=== PATIENT | female | born 1930 | race Asian ===

== ENCOUNTER 2017-04-21 06:45 | Inpatient (IN) | payer MEDICAID, MEDICARE ==
[2017-04-21] VITALS (8 sets, daily range): BP systolic 113–147; BP diastolic 29–89
[~2017-04-21] VITALS: Ht 162.6 cm; Wt 63.5 kg
[~2017-04-21 06:45] MED LIST: ATORVASTATIN CA20 MG ORAL; DEPAKOTE ER500 MG ORAL; DICYCLOMINE HCL10 MG ORAL; INDERAL LA60 MG ORAL; INDERAL10 MG ORAL; JANUVIA100 MG ORAL; LORAZEPAM2 MG ORAL; MELOXICAM7.5 MG ORAL; METFORMIN HCL1000 M1 ORAL; OMEPRAZOLE20 M3 ORAL; PROPRANOLOL HCL MC; TRAZODONE HCL100 MG ORAL; ZYPREXA10 MG ORAL
[2017-04-21] MEDS ORDERED: TRIHEXYPHENIDYL2 MG ORAL (06:50)
[2017-04-21] MEDS ORDERED: IBUPROFEN600 MG ORAL (06:50)
[2017-04-21] MEDS ORDERED: Bacitracin Oint UD TOPIC ONE (07:00)
[2017-04-21] MEDS ORDERED: Tetanus/Diptheria/Pertussis Vaccine 0.5ml Syr IM ONE (07:00)
[2017-04-21] MEDS ORDERED: Acetaminophen 650 MG SUPP RECTAL ONE (07:00)
[2017-04-21] MEDS ORDERED: NS 1000ml 1,900 ML IVLG ONE (07:00)
--- NOTE | 2017-04-21 07:16 | Emergency Room Report ---
History of Present Illness General Chief Complaint: Multiple Trauma/Fall Source: EMS Present Illness HPI The patient is brought in after a fall. She apparently hit her head and also scraped her left arm. The details of the fall are not apparent to us at this time. She's brought in by EMS basic life support. The patient is noted to have a fever. She's not communicating. She does follow some commands. No seizure was noted. Glucose in field normal. Patient does not communicate at this time. Allergies: Coded Allergies: No Known Allergies (Unverified , 12/14/12) Patient History Limited by: medical condition Past Medical History: see triage record Social History: Reports: smoking Social History Narrative assisted-living Now: No Reviewed Nursing Documentation: PMH: Agreed, PSxH: Agreed Nursing Documentation-PMH Hx Diabetes: Yes Hx Cancer: Yes - Cervix Hx Gastrointestinal Problems: Yes - GERD History Of Psychiatric Problem: Yes - Schizophrenia Review of Systems All Other Systems: limited Physical Exam Vital Signs Date Time Temp Pulse Resp B/P (MAP) Pulse Ox O2 Delivery O2 Flow Rate FiO2 04/21/17 06:37 100.8 99 14 125/63 97 Room Air Sp02 EP Interpretation: reviewed, normal General Appearance: no apparent distress, alert, lethargic, other - Hot skin Head: other - Small laceration occiput Eyes: bilateral eye normal inspection, bilateral eye PERRL ENT: dry mucus membranes - poor dentition Neck: full range of motion, supple, no bony tend Respiratory: normal inspection, chest non-tender, lungs clear, normal breath sounds Cardiovascular #1: tachycardia Cardiovascular #2: 2+ radial (R) Gastrointestinal: non tender, soft, no mass, abnormal bowel sounds - decreasede Musculoskeletal: back normal, digits/nails normal, normal range of motion Neurologic: motor strength/tone normal, DTRs symmetric, sensory intact, other - Somewhat lethargic, oriented - to name Psychiatric: depressed affect Skin: warm/dry, abrasions - Left elbow and superficial lacerations scalp Medical Decision Making Diagnostic Impression: Primary Impression: Sepsis Qualified Codes: A41.9 - Sepsis, unspecified organism Additional Impressions: UTI (urinary tract infection) Qualified Codes: N30.00 - Acute cystitis without hematuria Fall Qualified Codes: W19.XXXA - Unspecified fall, initial encounter Head injury Qualified Codes: S09.90XA - Unspecified injury of head, initial encounter Schizophrenia Qualified Codes: F20.9 - Schizophrenia, unspecified ER Course Patient presents with 2 problems. One is a fall and laceration to the occiput. Differential includes subdural hematoma, contusion. Unable to determine the circumstances of falling she needs to be considered to have had syncope. This requires evaluation with CT of the head, EKG, chest x-ray and labs including troponin. A secondary problem is that she has a fever. Her respiratory status is stable it was suggested she might have a urinary tract infection as the cause. She'll be treated for possible sepsis blood cultures will be done and a straight cath urine will be obtained. She'll be given rehydration as she is dehydrated at this time. The [place] the source is antibiotics will be started. Due to the nature of these 2 problems the patient needs to be admitted to the hospital. EKG ST, CXR no infiltrates, CT no bleed, labs with leukocytosis, renal insufficiency, initial lactate elevated. Antibiotics begun. Patient improved and smoking in room 2. Communicates needs well, but demonstrates poor insight. Admit tele Dr. Dalton. Laboratory Tests Test 04/21/17 07:00 04/21/17 07:30 04/21/17 08:58 04/21/17 16:14 White Blood Count 20.5 K/UL (4.8-10.8) H Red Blood Count 4.08 M/UL (4.20-5.40) L Hemoglobin 13.4 G/DL (12.0-16.0) Hematocrit 39.2 % (37.0-47.0) Mean Corpuscular Volume 96 FL (80-99) Mean Corpuscular Hemoglobin 32.8 PG (27.0-31.0) H Mean Corpuscular Hemoglobin Concent 34.1 G/DL (32.0-36.0) Red Cell Distribution Width 10.9 % (11.6-14.8) L Platelet Count 223 K/UL (150-450) Mean Platelet Volume 5.3 FL (6.5-10.1) L Neutrophils (%) (Auto) % (45.0-75.0) Lymphocytes (%) (Auto) % (20.0-45.0) Monocytes (%) (Auto) % (1.0-10.0) Eosinophils (%) (Auto) % (0.0-3.0) Basophils (%) (Auto) % (0.0-2.0) Differential Total Cells Counted 100 Neutrophils % (Manual) 87 % (45-75) H Lymphocytes % (Manual) 5 % (20-45) L Monocytes % (Manual) 8 % (1-10) Eosinophils % (Manual) 0 % (0-3) Basophils % (Manual) 0 % (0-2) Band Neutrophils 0 % (0-8) Platelet Estimate Adequate Platelet Morphology Normal Prothrombin Time 9.2 SEC (9.30-11.50) L Prothrombin Time INR 0.9 (0.9-1.1) PTT 26 SEC (23-33) Sodium Level 137 mEQ/L (135-145) Potassium Level 3.9 mEQ/L (3.4-4.9) Chloride Level 99 mEQ/L (98-107) Carbon Dioxide Level 25 mEQ/L (20-30) Anion Gap 13 (5-15) Blood Urea Nitrogen 24 mg/dL (7-23) H Creatinine 1.3 mg/dL (0.5-0.9) H Estimate Glomerular Filtration Rate mL/min (>60) Glucose Level 171 mg/dL (74-106) H Lactic Acid Level 2.80 mmol/L (0.66-2.22) H 1.00 mmol/L (0.66-2.22) Calcium Level 9.7 mg/dL (8.6-10.2) Total Bilirubin 0.3 mg/dL (0.0-1.2) Aspartate Amino Transferase (AST) 12 U/L (5-40) Alanine Aminotransferase (ALT) 14 U/L (3-33) Alkaline Phosphatase 81 U/L (35-104) Total Creatine Kinase 64 U/L (26-140) Troponin I < 0.30 ng/mL (<=0.30) Total Protein 7.3 g/dL (6.6-8.7) Albumin 4.3 g/dL (3.5-5.2) Globulin 3.0 g/dL Albumin/Globulin Ratio 1.4 (1.0-2.7) Urine Color Pale yellow Pale yellow Urine Appearance Slightly cloudy Slightly cloudy Urine pH 6 (4.5-8.0) 7 (4.5-8.0) Urine Specific [place] 1.005 (1.005-1.035) 1.010 (1.005-1.035) Urine Protein Negative (NEGATIVE) Negative (NEGATIVE) Urine Glucose (UA) Negative (NEGATIVE) 1+ (NEGATIVE) H Urine Ketones Negative (NEGATIVE) Negative (NEGATIVE) Urine Occult Blood 1+ (NEGATIVE) H 2+ (NEGATIVE) H Urine Nitrite Positive (NEGATIVE) H Positive (NEGATIVE) H Urine Bilirubin Negative (NEGATIVE) Negative (NEGATIVE) Urine Urobilinogen Normal MG/DL (0.0-1.0) Normal MG/DL (0.0-1.0) Urine Leukocyte Esterase 2+ (NEGATIVE) H 2+ (NEGATIVE) H Urine RBC 2-4 /HPF (0 - 2) H 2-4 /HPF (0 - 2) H Urine WBC 15-20 /HPF (0 - 2) H 10-15 /HPF (0 - 2) H Urine Squamous Epithelial Cells Occasional /LPF Moderate /LPF (NONE/OCC) H Urine Bacteria Many /HPF (NONE) H Moderate /HPF (NONE) H EKG Diagnostic Results Rate: tachycardiac ST Segments: no acute changes Rhythm Strip Diag. Results EP Interpretation: yes Rhythm: no PVC's, no ectopy, other - Sinus tachycardia Last Vital Signs Date Time Temp Pulse Resp B/P (MAP) Pulse Ox O2 Delivery O2 Flow Rate FiO2 04/21/17 20:00 96 04/21/17 20:00 97.7 20 138/68 96 Room Air Status: improved Disposition: ADMITTED INPATIENT Condition: Serious Keith Oconnor M.D. Apr 21, 2017 07:16
[2017-04-21 07:36] LABS: MEAN CORPUSCULAR HEMOGLOBIN 32.8 PG (27.0-31.0); MEAN CORPUSCULAR HGB CONC 34.1 G/DL (32.0-36.0); MEAN CORPUSCULAR VOLUME 96 FL (80-99); MEAN PLATELET VOLUME 5.3 FL (6.5-10.1); PLATELET COUNT 223 K/UL (150-450); RED BLOOD COUNT 4.08 M/UL (4.20-5.40); RED CELL DISTRIBUTION WIDTH 10.9 % (11.6-14.8); WHITE BLOOD COUNT 20.5 K/UL (4.8-10.8)
[2017-04-21 07:43] LABS: REFLEX LACTIC ACID YES OR NO YES
[2017-04-21 07:47] LABS: ALANINE AMINOTRANSFERASE 14 U/L (3-33); ALBUMIN/GLOBULIN RATIO 1.4 (1.0-2.7); ANION GAP 13 (5-15); ASPARTATE AMINO TRANSFERASE 12 U/L (5-40); CALCIUM 9.7 mg/dL (8.6-10.2); CARBON DIOXIDE 25 mEQ/L (20-30); CHLORIDE 99 mEQ/L (98-107); CREATININE 1.3 mg/dL (0.5-0.9); HEMOLYSIS 3; POTASSIUM 3.9 mEQ/L (3.4-4.9); SODIUM 137 mEQ/L (135-145); TOTAL PROTEIN 7.3 g/dL (6.6-8.7); TROPONIN I < 0.30 ng/mL (<=0.30)
[2017-04-21 08:01] LABS: APPEARANCE,URINE SLIGHTLY CLOUDY; KETONES,URINE NEGATIVE (NEGATIVE); LEUKOCYTE ESTERASE ,URINE 2+ (NEGATIVE); NITRITE,URINE POSITIVE (NEGATIVE); PH,URINE 6 (4.5-8.0); PROTEIN,URINE NEGATIVE (NEGATIVE); UROBILINOGEN,URINE NORMAL MG/DL (0.0-1.0)
[2017-04-21 08:08] LABS: BACTERIA,URINE MANY /HPF; SQUAMOUS EPITHELIAL CELL,UR OCCASIONAL /LPF (NONE/OCC); WBC,URINE 15-20 /HPF (0 - 2)
[2017-04-21 08:32] LABS: INR 0.9 (0.9-1.1); PROTHROMBIN TIME 9.2 SEC (9.30-11.50)
--- NOTE | 2017-04-21 08:46 | Diagnostic Imaging Report ---
Indication: Shortness of breath Comparison: 12/14/2012 chest one view Findings: Single view of the chest shows a normal cardiomediastinal silhouette. Pulmonary vasculature is normal. Lung are clear. Soft tissues and osseous structures are within normal limits. Impression: No acute chest disease
--- NOTE | 2017-04-21 08:46 | Diagnostic Imaging Report ---
Indication: TRAUMA Comparison: None Technique: Contiguous helical CT images of the brain was performed with [address] dose: Total DLP: 1330 mGycm; CTDI volume: 70.4 mGy Findings: There is no acute intracranial hemorrhage or infarct. No mass, mass effect or midline shift identified. Ventricles and sulci are prominent secondary to global cortical atrophy. There are no extra-axial fluid collections seen. Periventricular chronic ischemic changes are noted. Bony calvarium is intact. Mastoid air cells and visualized paranasal sinuses are clear. Impression: 1. No acute intracranial abnormalities. 2. Global cortical atrophy with periventricular chronic ischemic changes. The CT scanner at [facility] is accredited by the [employer] and the scans are performed using protocols designed to limit radiation exposure to as low as reasonably achievable to attain images of sufficient resolution adequate for diagnostic evaluation.
[2017-04-21] MEDS ORDERED: Cefepime HCl 1 GM in D5W 55 ML IVPB ONE (09:00)
[2017-04-21] MEDS ORDERED: Cefepime 1gm vial ONE (09:06)
[2017-04-21 10:00] LABS: BAND NEUTROPHILS % (MANUAL) 0 % (0-8); BASOPHILS % (MANUAL) 0 % (0-2); EOSINOPHILS % (MANUAL) 0 % (0-3); LYMPHOCYTES % (MANUAL) 5 % (20-45); NEUTROPHILS % (MANUAL) 87 % (45-75); PLATELET ESTIMATE ADEQUATE; PLATELET MORPHOLOGY NORMAL; TOTAL CELLS COUNTED 100
[2017-04-21] MEDS ORDERED: Miralax 17gm pkt ORAL PRN (10:00)
[2017-04-21] MEDS ORDERED: Morphine Sulfate 2mg/ml Inj IVP PRN (10:00)
[2017-04-21] MEDS ORDERED: Albuterol/Ipratropium 3ml neb HHN PRN (10:00)
[2017-04-21] MEDS ORDERED: Vancomycin 1 GM in D5W 275 ML IVPB ONE (12:00)
--- NOTE | 2017-04-21 13:10 | Infectious Diseases Prog Note ---
Assessment/Plan Problems: (1) UTI (urinary tract infection) Assessment & Plan: continue cefepime pending urine culture (2) Fever Assessment & Plan: due to sepsis and UTI, continue antibiotics and tylenol (3) Sepsis Assessment & Plan: suspect due to uti , continue vancomycin and cefepime pending blood culture results Subjective Allergies: Coded Allergies: No Known Allergies (Unverified , 12/14/12) Objective Vital Signs Last 24 Hour Vital Signs Date Time Temp Pulse Resp B/P (MAP) Pulse Ox O2 Delivery O2 Flow Rate FiO2 04/21/17 12:26 98.0 90 20 138/89 99 Room Air 04/21/17 10:11 98.2 92 11 116/55 97 Room Air 04/21/17 08:41 98.6 91 15 127/59 96 Room Air 04/21/17 08:12 98.6 04/21/17 07:20 100.5 98 13 125/63 98 Room Air 04/21/17 06:37 100.8 99 14 125/63 97 Room Air Height (Feet): 5 Height (Inches): 4.00 Weight (Pounds): 140 Laboratory Tests Test 04/21/17 07:00 04/21/17 07:30 04/21/17 08:58 White Blood Count 20.5 K/UL (4.8-10.8) H Red Blood Count 4.08 M/UL (4.20-5.40) L Hemoglobin 13.4 G/DL (12.0-16.0) Hematocrit 39.2 % (37.0-47.0) Mean Corpuscular Volume 96 FL (80-99) Mean Corpuscular Hemoglobin 32.8 PG (27.0-31.0) H Mean Corpuscular Hemoglobin Concent 34.1 G/DL (32.0-36.0) Red Cell Distribution Width 10.9 % (11.6-14.8) L Platelet Count 223 K/UL (150-450) Mean Platelet Volume 5.3 FL (6.5-10.1) L Neutrophils (%) (Auto) % (45.0-75.0) Lymphocytes (%) (Auto) % (20.0-45.0) Monocytes (%) (Auto) % (1.0-10.0) Eosinophils (%) (Auto) % (0.0-3.0) Basophils (%) (Auto) % (0.0-2.0) Differential Total Cells Counted 100 Neutrophils % (Manual) 87 % (45-75) H Lymphocytes % (Manual) 5 % (20-45) L Monocytes % (Manual) 8 % (1-10) Eosinophils % (Manual) 0 % (0-3) Basophils % (Manual) 0 % (0-2) Band Neutrophils 0 % (0-8) Platelet Estimate Adequate Platelet Morphology Normal Prothrombin Time 9.2 SEC (9.30-11.50) L Prothromb Time International Ratio 0.9 (0.9-1.1) Activated Partial Thromboplast Time 26 SEC (23-33) Sodium Level 137 mEQ/L (135-145) Potassium Level 3.9 mEQ/L (3.4-4.9) Chloride Level 99 mEQ/L (98-107) Carbon Dioxide Level 25 mEQ/L (20-30) Anion Gap 13 (5-15) Blood Urea Nitrogen 24 mg/dL (7-23) H Creatinine 1.3 mg/dL (0.5-0.9) H Estimat Glomerular Filtration Rate mL/min (>60) Glucose Level 171 mg/dL (74-106) H Lactic Acid Level 2.80 mmol/L (0.66-2.22) H 1.00 mmol/L (0.66-2.22) Calcium Level 9.7 mg/dL (8.6-10.2) Total Bilirubin 0.3 mg/dL (0.0-1.2) Aspartate Amino Transf (AST/SGOT) 12 U/L (5-40) Alanine Aminotransferase (ALT/SGPT) 14 U/L (3-33) Alkaline Phosphatase 81 U/L (35-104) Total Creatine Kinase 64 U/L (26-140) Troponin I < 0.30 ng/mL (<=0.30) Total Protein 7.3 g/dL (6.6-8.7) Albumin 4.3 g/dL (3.5-5.2) Globulin 3.0 g/dL Albumin/Globulin Ratio 1.4 (1.0-2.7) Urine Color Pale yellow Urine Appearance Slightly cloudy Urine pH 6 (4.5-8.0) Urine Specific [place] 1.005 (1.005-1.035) Urine Protein Negative (NEGATIVE) Urine Glucose (UA) Negative (NEGATIVE) Urine Ketones Negative (NEGATIVE) Urine Occult Blood 1+ (NEGATIVE) H Urine Nitrite Positive (NEGATIVE) H Urine Bilirubin Negative (NEGATIVE) Urine Urobilinogen Normal MG/DL (0.0-1.0) Urine Leukocyte Esterase 2+ (NEGATIVE) H Urine RBC 2-4 /HPF (0 - 2) H Urine WBC 15-20 /HPF (0 - 2) H Urine Squamous Epithelial Cells Occasional /LPF Urine Bacteria Many /HPF (NONE) H Current Medications Medications (Trade) Dose Ordered Sig/Milvia Route PRN Reason Start Time Stop Time Status Last Admin Dose Admin Acetaminophen (Tylenol) 650 mg Q4H PRN ORAL fever 04/21/17 10:00 05/21/17 09:59 Albuterol/ Ipratropium (DuoNeb 0.5-3(2.5)mg/3ml) 3 ml Q4H PRN HHN Shortness of Breath 04/21/17 10:00 04/26/17 09:59 Cefepime HCl 1 gm/ Dextrose 55 ml @ 110 mls/hr Q24H IVPB 04/22/17 09:00 04/29/17 08:59 Divalproex Sodium (Depakote) 500 mg THREE TIMES A DAY ORAL 04/21/17 13:00 05/21/17 12:59 Heparin Sodium (Porcine) (Heparin 5000 units/ml) 5,000 units EVERY 12 HOURS SUBQ 04/21/17 21:00 05/21/17 20:59 Morphine Sulfate (Morphine Sulfate) 2 mg Q4H PRN IVP Moderate Pain (Pain Scale 4-6) 04/21/17 10:00 04/28/17 09:59 Ondansetron HCl (Zofran) 4 mg Q6H PRN IVP Nausea & Vomiting 04/21/17 10:00 05/21/17 09:59 Phenazopyridine HCl (Pyridium) 100 mg DAILYPRN PRN ORAL dysuria 04/21/17 10:00 05/21/17 09:59 Polyethylene Glycol (Miralax) 17 gm DAILYPRN PRN ORAL Constipation 04/21/17 10:00 05/21/17 09:59 Sodium Chloride 1,000 ml @ 300 mls/hr Q3H20M IV 04/21/17 07:00 05/21/17 06:59 04/21/17 12:30 Temazepam (Restoril) 15 mg HSPRN PRN ORAL Insomnia 04/21/17 10:00 04/28/17 09:59 Trazodone HCl (Desyrel) 100 mg BEDTIME ORAL 04/21/17 21:00 05/21/17 20:59 Vancomycin HCl 1 gm/Dextrose 275 ml @ 183.3 mls/ hr ONCE ONCE IVPB 04/21/17 12:00 04/21/17 13:30 04/21/17 11:55 Vancomycin/Sodium Chloride 250 ml @ 166.667 mls/hr Q24H IVPB 04/22/17 12:00 04/27/17 11:59 Mary Islas M.D. Apr 21, 2017 13:10
[2017-04-21] MEDS: Depakote 500mg tab ORAL SCH ×2 (13:34→18:08)
[2017-04-21] MEDS: NovoLOG Insulin Flexpen SUBQ SCH ×2 (16:56→21:00)
[2017-04-21 18:43] LABS: APPEARANCE,URINE SLIGHTLY CLOUDY; KETONES,URINE NEGATIVE (NEGATIVE); LEUKOCYTE ESTERASE ,URINE 2+ (NEGATIVE); NITRITE,URINE POSITIVE (NEGATIVE); PH,URINE 7 (4.5-8.0); PROTEIN,URINE NEGATIVE (NEGATIVE); UROBILINOGEN,URINE NORMAL MG/DL (0.0-1.0)
[2017-04-21 18:55] LABS: BACTERIA,URINE MODERATE /HPF; SQUAMOUS EPITHELIAL CELL,UR MODERATE /LPF (NONE/OCC)
[2017-04-21] MEDS ORDERED: TraZODone 100mg tab ORAL SCH (21:00)
[2017-04-21] MEDS: Heparin 5000 units/ml inj SUBQ SCH (21:00)
[2017-04-21] MEDS ORDERED: Cefepime HCl 2 GM in D5W 110 ML IV SCH (21:00)
[2017-04-22 04:23] VITALS: BP 110/60
[2017-04-22] MEDS ORDERED: LORazepam 0.5mg tab ORAL PRN (05:00)
[2017-04-22] MEDS: NovoLOG Insulin Flexpen SUBQ SCH ×4 (06:30→21:48)
[2017-04-22 08:00] VITALS: BP 106/58
[2017-04-22 08:05] LABS: BASOPHILS % (AUTO) 0.2 % (0.0-2.0); EOSINOPHILS % (AUTO) 0.1 % (0.0-3.0); LYMPHOCYTES % (AUTO) 11.7 % (20.0-45.0); MEAN CORPUSCULAR HEMOGLOBIN 34.2 PG (27.0-31.0); MEAN CORPUSCULAR HGB CONC 35.6 G/DL (32.0-36.0); MEAN CORPUSCULAR VOLUME 96 FL (80-99); MEAN PLATELET VOLUME 5.9 FL (6.5-10.1); MONOCYTES % (AUTO) 6.3 % (1.0-10.0); NEUTROPHILS % (AUTO) 81.7 % (45.0-75.0); PLATELET COUNT 173 K/UL (150-450); RED BLOOD COUNT 3.65 M/UL (4.20-5.40); RED CELL DISTRIBUTION WIDTH 11.6 % (11.6-14.8); WHITE BLOOD COUNT 17.7 K/UL (4.8-10.8)
[2017-04-22 08:25] LABS: ALANINE AMINOTRANSFERASE 12 U/L (3-33); ALBUMIN/GLOBULIN RATIO 1.2 (1.0-2.7); ANION GAP 13 (5-15); ASPARTATE AMINO TRANSFERASE 11 U/L (5-40); CALCIUM 8.7 mg/dL (8.6-10.2); CARBON DIOXIDE 22 mEQ/L (20-30); CHLORIDE 103 mEQ/L (98-107); CREATININE 1.3 mg/dL (0.5-0.9); HEMOLYSIS 2; POTASSIUM 3.9 mEQ/L (3.4-4.9); SODIUM 138 mEQ/L (135-145); TOTAL PROTEIN 6.5 g/dL (6.6-8.7)
--- NOTE | 2017-04-22 08:32 | History and Physical Report ---
DATE OF ADMISSION: 04/21/2017 TIME: At 9 a.m. CONSULTANTS: 1. Spencer Leonardo M.D. 2. Dr. Wiley. 3. Valentin Jefferson M.D. 4. Lj Skinner M.D. Chief Complaint: Weakness, confusion, fall, urinary tract infection, sepsis, laceration on scalp. Brief History: This is an 87-year-old female from an assisted living presented with above-mentioned diagnoses. Wound was dressed. The patient was cleared by ER doctor. UTI was found. The patient being to telemetry for further care. Currently, confused in bed, no complaints otherwise. REVIEW OF SYSTEMS: Unavailable, the patient is very confused. Past Medial History: Includes schizophrenia, diabetes, hypercholesterolemia, hypertension. PAST SURGICAL HISTORY: Unknown. MEDICATIONS: Include cefepime, levofloxacin, IV fluids, bacitracin. ALLERGIES: Denies. Social History: Plosive smoke. No alcohol. No change of drug abuse. FAMILY HISTORY: Noncontributory. PHYSICAL EXAMINATION: GENERAL: Calm in ER gurney, oriented x1, in no acute distress. Vital Signs: Temperature is 98 degrees, pulse 91, respirations 15, and blood pressure 127/59. CARDIOVASCULAR: No murmurs. LUNGS: Distant and clear. ABDOMEN: Bowel sounds are positive. Nontender and nondistended. EXTREMITIES: No cyanosis, clubbing, or edema. NEUROLOGICAL: The patient moves all extremities, but slightly weak. Laboratory Data: Show white count 20, otherwise CBC is normal. BMP shows BUN and creatine 24 and 1.3, otherwise normal. INR is 0.9. Urinalysis, positive nitrites. ASSESSMENT: 1. Fall. 2. Urinary tract infection. 3. Sepsis. 4. 01:40 5. Laceration to scalp. 6. Schizophrenia. 7. Diabetes. 8. Hypertension. PLAN: 1. Continue premedications. 2. OT, PT, and dietary followup. 3. Wound care. 4. CBC and BMP in the morning. 5. Blood sugar control. 6. Blood pressure control. 7. Resume home medications. 8. Dr Leonardo, Dr. Wiley, Dr. Jefferson, Dr. Skinner, and Dr. Cornejo to consult. 9. We will continue to follow this patient. Ap Dalton D.O. DR: Luis JOB#: [id number] CC:
[2017-04-22] MEDS ORDERED: Cefepime 1gm/D5W 55ml IVPB SCH ×2 (09:00)
--- NOTE | 2017-04-22 09:57 | Infectious Diseases Prog Note ---
Assessment/Plan Assessment/Plan Assesment: UTI -u/a WBC 15-20, nit +, leuk est +2; ucx >100k GNB (Id and sensi pending) Low grade fever/leukocytosis, improving -CXR no acute disease s/p Fall with scalp laceration -CT head with no acute abnormalities DM2 Schizophrenia Plan: -Continue IV Cefepime #2 pending Ucx -D/C IV Vancomycin -s/p 1 d IV Vancomycin 04/22 -monitor CBC/BMP, temperatures -Aspiration precautions Discussed with RN. Subjective Allergies: Coded Allergies: No Known Allergies (Unverified , 12/14/12) Subjective afebrile Leukocytosis improving Objective Vital Signs Last 24 Hour Vital Signs Date Time Temp Pulse Resp B/P (MAP) Pulse Ox O2 Delivery O2 Flow Rate FiO2 04/22/17 08:00 98.4 86 19 106/58 96 Room Air 04/22/17 04:23 98.1 69 20 110/60 95 Room Air 04/22/17 04:00 68 04/22/17 00:00 66 04/21/17 23:42 97.7 67 20 113/50 96 Room Air 04/21/17 20:00 96 04/21/17 20:00 97.7 78 20 138/68 96 Room Air 04/21/17 16:00 78 04/21/17 15:15 98.2 77 20 147/61 99 Room Air 04/21/17 14:45 95 13 121/60 97 Room Air 04/21/17 14:37 98.2 88 29 141/29 100 Room Air 04/21/17 12:26 98.0 90 20 138/89 99 Room Air 04/21/17 10:11 98.2 92 11 116/55 97 Room Air Height (Feet): 5 Height (Inches): 4.00 Weight (Pounds): 140 Objective GENERAL: in no distress CARDIOVASCULAR: No murmurs. LUNGS: CTA x 2 ABDOMEN: Bowel sounds are positive. Nontender and nondistended. EXTREMITIES: No cyanosis, clubbing, or edema. NEUROLOGICAL: The patient moves all extremities, but slightly weak. Microbiology Date/Time Source Procedure Growth Status 04/21/17 16:14 Urine,Clean Catch Urine Culture - Preliminary NO GROWTH Resulted 04/21/17 07:30 Urine,Clean Catch Urine Culture - Preliminary Gram Negative Bacillus 1 Resulted Laboratory Tests Test 04/21/17 16:14 04/22/17 07:20 Urine Color Pale yellow Urine Appearance Slightly cloudy Urine pH 7 (4.5-8.0) Urine Specific [place] 1.010 (1.005-1.035) Urine Protein Negative (NEGATIVE) Urine Glucose (UA) 1+ (NEGATIVE) H Urine Ketones Negative (NEGATIVE) Urine Occult Blood 2+ (NEGATIVE) H Urine Nitrite Positive (NEGATIVE) H Urine Bilirubin Negative (NEGATIVE) Urine Urobilinogen Normal MG/DL (0.0-1.0) Urine Leukocyte Esterase 2+ (NEGATIVE) H Urine RBC 2-4 /HPF (0 - 2) H Urine WBC 10-15 /HPF (0 - 2) H Urine Squamous Epithelial Cells Moderate /LPF (NONE/OCC) H Urine Bacteria Moderate /HPF (NONE) H White Blood Count 17.7 K/UL (4.8-10.8) H Red Blood Count 3.65 M/UL (4.20-5.40) L Hemoglobin 12.5 G/DL (12.0-16.0) Hematocrit 35.2 % (37.0-47.0) L Mean Corpuscular Volume 96 FL (80-99) Mean Corpuscular Hemoglobin 34.2 PG (27.0-31.0) H Mean Corpuscular Hemoglobin Concent 35.6 G/DL (32.0-36.0) Red Cell Distribution Width 11.6 % (11.6-14.8) Platelet Count 173 K/UL (150-450) Mean Platelet Volume 5.9 FL (6.5-10.1) L Neutrophils (%) (Auto) 81.7 % (45.0-75.0) H Lymphocytes (%) (Auto) 11.7 % (20.0-45.0) L Monocytes (%) (Auto) 6.3 % (1.0-10.0) Eosinophils (%) (Auto) 0.1 % (0.0-3.0) Basophils (%) (Auto) 0.2 % (0.0-2.0) Sodium Level 138 mEQ/L (135-145) Potassium Level 3.9 mEQ/L (3.4-4.9) Chloride Level 103 mEQ/L (98-107) Carbon Dioxide Level 22 mEQ/L (20-30) Anion Gap 13 (5-15) Blood Urea Nitrogen 16 mg/dL (7-23) Creatinine 1.3 mg/dL (0.5-0.9) H Estimat Glomerular Filtration Rate mL/min (>60) Glucose Level 166 mg/dL (74-106) H Calcium Level 8.7 mg/dL (8.6-10.2) Total Bilirubin 0.3 mg/dL (0.0-1.2) Aspartate Amino Transf (AST/SGOT) 11 U/L (5-40) Alanine Aminotransferase (ALT/SGPT) 12 U/L (3-33) Alkaline Phosphatase 62 U/L (35-104) Total Protein 6.5 g/dL (6.6-8.7) L Albumin 3.6 g/dL (3.5-5.2) Globulin 2.9 g/dL Albumin/Globulin Ratio 1.2 (1.0-2.7) Current Medications Medications (Trade) Dose Ordered Sig/Milvia Route PRN Reason Start Time Stop Time Status Last Admin Dose Admin Acetaminophen (Tylenol) 650 mg Q4H PRN ORAL fever 04/21/17 10:00 05/21/17 09:59 Albuterol/ Ipratropium (DuoNeb 0.5-3(2.5)mg/3ml) 3 ml Q4H PRN HHN Shortness of Breath 04/21/17 10:00 04/26/17 09:59 Cefepime HCl 1 gm/ Dextrose 55 ml @ 110 mls/hr Q24H IVPB 04/22/17 09:00 04/29/17 08:59 Dextrose (Dextrose 50%) STAT PRN IV Hypoglycemia 04/21/17 16:30 05/21/17 16:29 Divalproex Sodium (Depakote) 500 mg THREE TIMES A DAY ORAL 04/21/17 13:00 05/21/17 12:59 04/21/17 18:08 Heparin Sodium (Porcine) (Heparin 5000 units/ml) 5,000 units EVERY 12 HOURS SUBQ 04/21/17 21:00 05/21/17 20:59 04/21/17 21:00 Insulin Aspart (NovoLOG) BEFORE MEALS AND HS SUBQ 04/21/17 17:00 05/21/17 16:59 04/21/17 21:00 Lorazepam (Ativan) 0.5 mg Q6H PRN ORAL For Anxiety 04/22/17 05:00 04/29/17 04:59 Morphine Sulfate (Morphine Sulfate) 2 mg Q4H PRN IVP Moderate Pain (Pain Scale 4-6) 04/21/17 10:00 04/28/17 09:59 Olanzapine (ZyPREXA) 5 mg DAILY ORAL 04/22/17 09:00 05/22/17 08:59 Olanzapine (ZyPREXA) 5 mg QHS ORAL 04/22/17 21:00 05/22/17 20:59 Ondansetron HCl (Zofran) 4 mg Q6H PRN IVP Nausea & Vomiting 04/21/17 10:00 05/21/17 09:59 Phenazopyridine HCl (Pyridium) 100 mg DAILYPRN PRN ORAL dysuria 04/21/17 10:00 05/21/17 09:59 Polyethylene Glycol (Miralax) 17 gm DAILYPRN PRN ORAL Constipation 04/21/17 10:00 05/21/17 09:59 Temazepam (Restoril) 15 mg HSPRN PRN ORAL Insomnia 04/21/17 10:00 04/28/17 09:59 04/21/17 21:55 Trazodone HCl (Desyrel) 100 mg BEDTIME ORAL 04/21/17 21:00 05/21/17 20:59 04/21/17 20:59 Vancomycin HCl (Vanco rx to dose) 1 ea DAILY PRN MISC PER RX PROTOCOL 04/21/17 16:45 05/21/17 16:44 Vancomycin/Sodium Chloride 250 ml @ 166.667 mls/hr Q24H IVPB 04/22/17 12:00 04/27/17 11:59 Nancy Longoria M.D. Apr 22, 2017 09:57
[2017-04-22] MEDS: Depakote 500mg tab ORAL SCH ×3 (10:03→16:48)
[2017-04-22] MEDS: Heparin 5000 units/ml inj SUBQ SCH ×2 (10:05→21:41)
[2017-04-22] MEDS ORDERED: Flu Vaccine Quadrivalent 0.5ml IM ONE (11:45)
[2017-04-22 12:00] VITALS: BP 107/53
[2017-04-22] MEDS ORDERED: Vancomycin 750mg/NS 250ml 250 ML IVPB SCH (12:00)
--- NOTE | 2017-04-22 12:32 | Consultation ---
History of Present Illness General Date patient seen: Apr 21, 2017 Chief Complaint: Multiple Trauma/Fall Present Illness HPI 87 year old female with hx of DM, HTN, psychosis, brought in by paramedics after an episode of fall. She apparently hit her head and also scraped her left arm. The patient was noted to have a fever. She's not communicating. She does follow some commands. She is admitted to telemetry for possible syncope and sepsis. Allergies: Coded Allergies: No Known Allergies (Unverified , 12/14/12) Medication History Scheduled Dicyclomine Hcl* (Dicyclomine Hcl*), 20 MG ORAL THREE TIMES A DAY, (Reported) Divalproex Sodium* (Depakote Er*), 500 MG ORAL THREE TIMES A DAY, (Reported) Lorazepam* (Lorazepam*), 2 MG ORAL BEDTIME, (Reported) Meloxicam* (Meloxicam*), 7.5 MG ORAL DAILY, (Reported) Metformin Hcl* (Metformin Hcl*), 1,000 MG ORAL TWICE A DAY, (Reported) Olanzapine* (Zyprexa*), 15 MG ORAL BEDTIME, (Reported) Omeprazole (Omeprazole), 20 MG ORAL DAILY, (Reported) Propranolol HCl (Propranolol HCl), 10 MG ORAL TWICE A DAY, (Reported) Propranolol Hcl* (Inderal La*), 60 MG ORAL DAILY, (Reported) Sitagliptin (Januvia), 100 MG ORAL DAILY, (Reported) Trazodone Hcl* (Desyrel*), 100 MG ORAL BEDTIME, (Reported) Trihexyphenidyl Hcl* (Artane*), 2 MG ORAL BEDTIME, (Reported) Scheduled PRN Ibuprofen* (Motrin*), 800 MG ORAL THREE TIMES A DAY PRN for For Pain, (Reported) Miscellaneous Medications Atorvastatin Calcium* (Atorvastatin Calcium*), 10 MG ORAL, (Reported) Patient History Healthcare decision maker Resuscitation status Full Code Advanced Directive on File Past Medical/Surgical History Past Medical/Surgical History: (1) Diabetes mellitus (2) Hypertension (3) Schizophrenia Review of Systems All Other Systems: negative except mentioned in HPI Physical Exam General Appearance: WD/WN Lines, tubes and drains: peripheral, PICC HEENT: normocephalic, atraumatic Neck: non-tender, normal alignment Respiratory/Chest: chest wall non-tender, lungs clear Cardiovascular/Chest: normal peripheral pulses, normal rate, regular rhythm Abdomen: normal bowel sounds, non tender Genitourinary/Rectal: normal genital exam, normal rectal exam Extremities: normal range of motion, non-tender Skin Exam: normal pigmentation Last 24 Hour Vital Signs Date Time Temp Pulse Resp B/P (MAP) Pulse Ox O2 Delivery O2 Flow Rate FiO2 04/22/17 12:00 98.1 66 19 107/53 98 Room Air 04/22/17 08:00 98.4 86 19 106/58 96 Room Air 04/22/17 04:23 98.1 69 20 110/60 95 Room Air 04/22/17 04:00 68 04/22/17 00:00 66 04/21/17 23:42 97.7 67 20 113/50 96 Room Air 04/21/17 20:00 96 04/21/17 20:00 97.7 78 20 138/68 96 Room Air 04/21/17 16:00 78 04/21/17 15:15 98.2 77 20 147/61 99 Room Air 04/21/17 14:45 95 13 121/60 97 Room Air 04/21/17 14:37 98.2 88 29 141/29 100 Room Air Intake and Output 04/22/17 04/23/17 19:00 07:00 Intake Total 240 ml Balance 240 ml Intake Oral 240 ml # Voids 2 Laboratory Tests Test 04/21/17 16:14 04/22/17 07:20 Urine Color Pale yellow Urine Appearance Slightly cloudy Urine pH 7 (4.5-8.0) Urine Specific [place] 1.010 (1.005-1.035) Urine Protein Negative (NEGATIVE) Urine Glucose (UA) 1+ (NEGATIVE) H Urine Ketones Negative (NEGATIVE) Urine Occult Blood 2+ (NEGATIVE) H Urine Nitrite Positive (NEGATIVE) H Urine Bilirubin Negative (NEGATIVE) Urine Urobilinogen Normal MG/DL (0.0-1.0) Urine Leukocyte Esterase 2+ (NEGATIVE) H Urine RBC 2-4 /HPF (0 - 2) H Urine WBC 10-15 /HPF (0 - 2) H Urine Squamous Epithelial Cells Moderate /LPF (NONE/OCC) H Urine Bacteria Moderate /HPF (NONE) H White Blood Count 17.7 K/UL (4.8-10.8) H Red Blood Count 3.65 M/UL (4.20-5.40) L Hemoglobin 12.5 G/DL (12.0-16.0) Hematocrit 35.2 % (37.0-47.0) L Mean Corpuscular Volume 96 FL (80-99) Mean Corpuscular Hemoglobin 34.2 PG (27.0-31.0) H Mean Corpuscular Hemoglobin Concent 35.6 G/DL (32.0-36.0) Red Cell Distribution Width 11.6 % (11.6-14.8) Platelet Count 173 K/UL (150-450) Mean Platelet Volume 5.9 FL (6.5-10.1) L Neutrophils (%) (Auto) 81.7 % (45.0-75.0) H Lymphocytes (%) (Auto) 11.7 % (20.0-45.0) L Monocytes (%) (Auto) 6.3 % (1.0-10.0) Eosinophils (%) (Auto) 0.1 % (0.0-3.0) Basophils (%) (Auto) 0.2 % (0.0-2.0) Sodium Level 138 mEQ/L (135-145) Potassium Level 3.9 mEQ/L (3.4-4.9) Chloride Level 103 mEQ/L (98-107) Carbon Dioxide Level 22 mEQ/L (20-30) Anion Gap 13 (5-15) Blood Urea Nitrogen 16 mg/dL (7-23) Creatinine 1.3 mg/dL (0.5-0.9) H Estimat Glomerular Filtration Rate mL/min (>60) Glucose Level 166 mg/dL (74-106) H Calcium Level 8.7 mg/dL (8.6-10.2) Total Bilirubin 0.3 mg/dL (0.0-1.2) Aspartate Amino Transf (AST/SGOT) 11 U/L (5-40) Alanine Aminotransferase (ALT/SGPT) 12 U/L (3-33) Alkaline Phosphatase 62 U/L (35-104) Total Protein 6.5 g/dL (6.6-8.7) L Albumin 3.6 g/dL (3.5-5.2) Globulin 2.9 g/dL Albumin/Globulin Ratio 1.2 (1.0-2.7) Microbiology Date/Time Source Procedure Growth Status 04/21/17 16:14 Urine,Clean Catch Urine Culture - Preliminary NO GROWTH Resulted Height (Feet): 5 Height (Inches): 4.00 Weight (Pounds): 140 Medications Current Medications Medications (Trade) Dose Ordered Sig/Milvia Route PRN Reason Start Time Stop Time Status Last Admin Dose Admin Acetaminophen (Tylenol) 650 mg Q4H PRN ORAL fever 04/21/17 10:00 05/21/17 09:59 Albuterol/ Ipratropium (DuoNeb 0.5-3(2.5)mg/3ml) 3 ml Q4H PRN HHN Shortness of Breath 04/21/17 10:00 04/26/17 09:59 Cefepime HCl 1 gm/ Dextrose 55 ml @ 110 mls/hr Q24H IVPB 04/22/17 09:00 04/29/17 08:59 04/22/17 11:38 Dextrose (Dextrose 50%) STAT PRN IV Hypoglycemia 04/21/17 16:30 05/21/17 16:29 Divalproex Sodium (Depakote) 500 mg THREE TIMES A DAY ORAL 04/21/17 13:00 05/21/17 12:59 04/22/17 10:03 Heparin Sodium (Porcine) (Heparin 5000 units/ml) 5,000 units EVERY 12 HOURS SUBQ 04/21/17 21:00 05/21/17 20:59 04/22/17 10:05 Insulin Aspart (NovoLOG) BEFORE MEALS AND HS SUBQ 04/21/17 17:00 05/21/17 16:59 04/22/17 11:41 Lorazepam (Ativan) 0.5 mg Q6H PRN ORAL For Anxiety 04/22/17 05:00 04/29/17 04:59 Morphine Sulfate (Morphine Sulfate) 2 mg Q4H PRN IVP Moderate Pain (Pain Scale 4-6) 04/21/17 10:00 04/28/17 09:59 Olanzapine (ZyPREXA) 5 mg DAILY ORAL 04/22/17 09:00 05/22/17 08:59 04/22/17 10:03 Olanzapine (ZyPREXA) 5 mg QHS ORAL 04/22/17 21:00 05/22/17 20:59 Ondansetron HCl (Zofran) 4 mg Q6H PRN IVP Nausea & Vomiting 04/21/17 10:00 05/21/17 09:59 Phenazopyridine HCl (Pyridium) 100 mg DAILYPRN PRN ORAL dysuria 04/21/17 10:00 05/21/17 09:59 Polyethylene Glycol (Miralax) 17 gm DAILYPRN PRN ORAL Constipation 04/21/17 10:00 05/21/17 09:59 Temazepam (Restoril) 15 mg HSPRN PRN ORAL Insomnia 04/21/17 10:00 04/28/17 09:59 04/21/17 21:55 Trazodone HCl (Desyrel) 100 mg BEDTIME ORAL 04/21/17 21:00 05/21/17 20:59 04/21/17 20:59 Assessment/Plan Problem List: (1) Sepsis ICD Codes: A41.9 - Sepsis, unspecified organism SNOMED: 56755437 Qualifiers: Qualified Codes: A41.9 - Sepsis, unspecified organism (2) UTI (urinary tract infection) ICD Codes: N39.0 - Urinary tract infection, site not specified SNOMED: 19952491 Qualifiers: Qualified Codes: N30.00 - Acute cystitis without hematuria (3) Diabetes mellitus ICD Codes: E11.9 - Type 2 diabetes mellitus without complications SNOMED: 90212513 (4) Hypertension ICD Codes: I10 - Essential (primary) hypertension SNOMED: 55262490 (5) Schizophrenia ICD Codes: F20.9 - Schizophrenia, unspecified SNOMED: 77066404 Qualifiers: Qualified Codes: F20.9 - Schizophrenia, unspecified (6) Head injury ICD Codes: S09.90XA - Unspecified injury of head, initial encounter SNOMED: 02787066 Qualifiers: Qualified Codes: S09.90XA - Unspecified injury of head, initial encounter (7) Fall ICD Codes: W19.XXXA - Unspecified fall, initial encounter SNOMED: 9140077, 653352898 Qualifiers: Qualified Codes: W19.XXXA - Unspecified fall, initial encounter Assessment/Plan telemetry monitoring IV abx [place] culture sliding scale diabetic diet dvt prophylaxis EFREM BETANCUR Apr 22, 2017 12:32
--- NOTE | 2017-04-22 12:41 | Pulmonology Progress Note ---
Assessment/Plan Problems: (1) Sepsis (2) UTI (urinary tract infection) (3) Diabetes mellitus (4) Hypertension (5) Schizophrenia (6) Head injury (7) Fall Assessment/Plan sinus rhythim improving renal studies IV abx [place] culture sliding scale diabetic diet dvt prophylaxis Subjective ROS Limited/Unobtainable: No Interval Events: feeling better Allergies: Coded Allergies: No Known Allergies (Unverified , 12/14/12) Objective Last 24 Hour Vital Signs Date Time Temp Pulse Resp B/P (MAP) Pulse Ox O2 Delivery O2 Flow Rate FiO2 04/22/17 12:00 98.1 66 19 107/53 98 Room Air 04/22/17 08:00 98.4 86 19 106/58 96 Room Air 04/22/17 04:23 98.1 69 20 110/60 95 Room Air 04/22/17 04:00 68 04/22/17 00:00 66 04/21/17 23:42 97.7 67 20 113/50 96 Room Air 04/21/17 20:00 96 04/21/17 20:00 97.7 78 20 138/68 96 Room Air 04/21/17 16:00 78 04/21/17 15:15 98.2 77 20 147/61 99 Room Air 04/21/17 14:45 95 13 121/60 97 Room Air 04/21/17 14:37 98.2 88 29 141/29 100 Room Air Intake and Output 04/22/17 04/23/17 19:00 07:00 Intake Total 240 ml Balance 240 ml Intake Oral 240 ml # Voids 2 General Appearance: WD/WN Respiratory/Chest: chest wall non-tender, lungs clear Breasts: no masses Cardiovascular: normal peripheral pulses Abdomen: normal bowel sounds, soft, non tender Genitourinary: normal external genitalia Extremities: no clubbing Skin: no rash Microbiology Date/Time Source Procedure Growth Status 04/21/17 07:00 Blood Blood Culture - Preliminary Resulted 04/21/17 16:14 Urine,Clean Catch Urine Culture - Preliminary NO GROWTH Resulted 04/21/17 07:30 Urine,Clean Catch Urine Culture - Preliminary Gram Negative Bacillus 1 Resulted Laboratory Tests 04/21/17 16:14: Urine Color Pale yellow, Urine Appearance Slightly cloudy, Urine pH 7, Urine Specific [place] 1.010, Urine Protein Negative, Urine Glucose (UA) 1+H, Urine Ketones Negative, Urine Occult Blood 2+H, Urine Nitrite PositiveH, Urine Bilirubin Negative, Urine Urobilinogen Normal, Urine Leukocyte Esterase 2+H, Urine RBC 2-4H, Urine WBC 10-15H, Urine Squamous Epithelial Cells ModerateH, Urine Bacteria ModerateH 04/22/17 07:20: White Blood Count 17.7H, Red Blood Count 3.65L, Hemoglobin 12.5, Hematocrit 35.2L, Mean Corpuscular Volume 96, Mean Corpuscular Hemoglobin 34.2H, Mean Corpuscular Hemoglobin Concent 35.6, Red Cell Distribution Width 11.6, Platelet Count 173, Mean Platelet Volume 5.9L, Neutrophils (%) (Auto) 81.7H, Lymphocytes (%) (Auto) 11.7L, Monocytes (%) (Auto) 6.3, Eosinophils (%) (Auto) 0.1, Basophils (%) (Auto) 0.2, Sodium Level 138, Potassium Level 3.9, Chloride Level 103, Carbon Dioxide Level 22, Anion Gap 13, Blood Urea Nitrogen 16, Creatinine 1.3H, Estimat Glomerular Filtration Rate , Glucose Level 166H, Calcium Level 8.7 , Total Bilirubin 0.3, Aspartate Amino Transf (AST/SGOT) 11, Alanine Aminotransferase (ALT/SGPT) 12, Alkaline Phosphatase 62, Total Protein 6.5L, Albumin 3.6, Globulin 2.9, Albumin/Globulin Ratio 1.2 Current Medications Medications (Trade) Dose Ordered Sig/Milvia Route PRN Reason Start Time Stop Time Status Last Admin Dose Admin Acetaminophen (Tylenol) 650 mg Q4H PRN ORAL fever 04/21/17 10:00 05/21/17 09:59 Albuterol/ Ipratropium (DuoNeb 0.5-3(2.5)mg/3ml) 3 ml Q4H PRN HHN Shortness of Breath 04/21/17 10:00 04/26/17 09:59 Cefepime HCl 1 gm/ Dextrose 55 ml @ 110 mls/hr Q24H IVPB 04/22/17 09:00 04/29/17 08:59 04/22/17 11:38 Dextrose (Dextrose 50%) STAT PRN IV Hypoglycemia 04/21/17 16:30 05/21/17 16:29 Divalproex Sodium (Depakote) 500 mg THREE TIMES A DAY ORAL 04/21/17 13:00 05/21/17 12:59 04/22/17 10:03 Heparin Sodium (Porcine) (Heparin 5000 units/ml) 5,000 units EVERY 12 HOURS SUBQ 04/21/17 21:00 05/21/17 20:59 04/22/17 10:05 Insulin Aspart (NovoLOG) BEFORE MEALS AND HS SUBQ 04/21/17 17:00 05/21/17 16:59 04/22/17 11:41 Lorazepam (Ativan) 0.5 mg Q6H PRN ORAL For Anxiety 04/22/17 05:00 04/29/17 04:59 Morphine Sulfate (Morphine Sulfate) 2 mg Q4H PRN IVP Moderate Pain (Pain Scale 4-6) 04/21/17 10:00 04/28/17 09:59 Olanzapine (ZyPREXA) 5 mg DAILY ORAL 04/22/17 09:00 05/22/17 08:59 04/22/17 10:03 Olanzapine (ZyPREXA) 5 mg QHS ORAL 04/22/17 21:00 05/22/17 20:59 Ondansetron HCl (Zofran) 4 mg Q6H PRN IVP Nausea & Vomiting 04/21/17 10:00 05/21/17 09:59 Phenazopyridine HCl (Pyridium) 100 mg DAILYPRN PRN ORAL dysuria 04/21/17 10:00 05/21/17 09:59 Polyethylene Glycol (Miralax) 17 gm DAILYPRN PRN ORAL Constipation 04/21/17 10:00 05/21/17 09:59 Temazepam (Restoril) 15 mg HSPRN PRN ORAL Insomnia 04/21/17 10:00 04/28/17 09:59 04/21/17 21:55 Trazodone HCl (Desyrel) 100 mg BEDTIME ORAL 04/21/17 21:00 05/21/17 20:59 04/21/17 20:59 EFREM BETANCUR Apr 22, 2017 12:41
[2017-04-22 13:15] LABS: URIC ACID 5.3 mg/dL (3.0-7.5)
--- NOTE | 2017-04-22 14:00 | General Progress Note ---
Assessment/Plan Problem List: (1) Malnutrition ICD Codes: E46 - Unspecified protein-calorie malnutrition SNOMED: 0361496 (2) Fever ICD Codes: R50.9 - Fever, unspecified SNOMED: 740458311 (3) Schizophrenia ICD Codes: F20.9 - Schizophrenia, unspecified SNOMED: 86421660 Qualifiers: Qualified Codes: F20.9 - Schizophrenia, unspecified (4) Sepsis ICD Codes: A41.9 - Sepsis, unspecified organism SNOMED: 27377646 Qualifiers: Qualified Codes: A41.9 - Sepsis, unspecified organism (5) Diabetes mellitus ICD Codes: E11.9 - Type 2 diabetes mellitus without complications SNOMED: 67405552 (6) UTI (urinary tract infection) ICD Codes: N39.0 - Urinary tract infection, site not specified SNOMED: 40636156 Qualifiers: Qualified Codes: N30.00 - Acute cystitis without hematuria (7) Hypertension ICD Codes: I10 - Essential (primary) hypertension SNOMED: 67485054 Status: stable, progressing, tolerating diet Assessment/Plan ot pt diet abx bp bs control cbc bmp in am ltach eval Subjective Constitutional: Reports: weakness Allergies: Coded Allergies: No Known Allergies (Unverified , 12/14/12) All Systems: reviewed and negative except above Subjective sleepy in bed calm Objective Last 24 Hour Vital Signs Date Time Temp Pulse Resp B/P (MAP) Pulse Ox O2 Delivery O2 Flow Rate FiO2 04/22/17 12:00 98.1 66 19 107/53 98 Room Air 04/22/17 08:00 98.4 86 19 106/58 96 Room Air 04/22/17 04:23 98.1 69 20 110/60 95 Room Air 04/22/17 04:00 68 04/22/17 00:00 66 04/21/17 23:42 97.7 67 20 113/50 96 Room Air 04/21/17 20:00 96 04/21/17 20:00 97.7 78 20 138/68 96 Room Air 04/21/17 16:00 78 04/21/17 15:15 98.2 77 20 147/61 99 Room Air 04/21/17 14:45 95 13 121/60 97 Room Air 04/21/17 14:37 98.2 88 29 141/29 100 Room Air Intake and Output 04/22/17 04/23/17 19:00 07:00 Intake Total 480 ml Balance 480 ml Intake Oral 480 ml # Voids 3 # Bowel Movements 1 Laboratory Tests 04/21/17 16:14: Urine Color Pale yellow, Urine Appearance Slightly cloudy, Urine pH 7, Urine Specific [place] 1.010, Urine Protein Negative, Urine Glucose (UA) 1+H, Urine Ketones Negative, Urine Occult Blood 2+H, Urine Nitrite PositiveH, Urine Bilirubin Negative, Urine Urobilinogen Normal, Urine Leukocyte Esterase 2+H, Urine RBC 2-4H, Urine WBC 10-15H, Urine Squamous Epithelial Cells ModerateH, Urine Bacteria ModerateH 04/22/17 07:20: White Blood Count 17.7H, Red Blood Count 3.65L, Hemoglobin 12.5, Hematocrit 35.2L, Mean Corpuscular Volume 96, Mean Corpuscular Hemoglobin 34.2H, Mean Corpuscular Hemoglobin Concent 35.6, Red Cell Distribution Width 11.6, Platelet Count 173, Mean Platelet Volume 5.9L, Neutrophils (%) (Auto) 81.7H, Lymphocytes (%) (Auto) 11.7L, Monocytes (%) (Auto) 6.3, Eosinophils (%) (Auto) 0.1, Basophils (%) (Auto) 0.2, Sodium Level 138, Potassium Level 3.9, Chloride Level 103, Carbon Dioxide Level 22, Anion Gap 13, Blood Urea Nitrogen 16, Creatinine 1.3H, Estimat Glomerular Filtration Rate , Glucose Level 166H, Uric Acid 5.3, Calcium Level 8.7, Total Bilirubin 0.3, Aspartate Amino Transf (AST/SGOT) 11, Alanine Aminotransferase (ALT/SGPT) 12, Alkaline Phosphatase 62, Total Creatine Kinase 63, Total Protein 6.5L, Albumin 3.6, Globulin 2.9, Albumin/Globulin Ratio 1.2 Height (Feet): 5 Height (Inches): 4.00 Weight (Pounds): 140 General Appearance: lethargic, confused EENT: normal ENT inspection Neck: normal alignment Cardiovascular: normal peripheral pulses, normal rate, regular rhythm Respiratory/Chest: chest wall non-tender, lungs clear, normal breath sounds Abdomen: normal bowel sounds, non tender, soft Extremities: normal inspection Edema: no edema noted Arm (L), no edema noted Arm (R), no edema noted Leg (L), no edema noted Leg (R), no edema noted Pedal (L), no edema noted Pedal (R), no edema noted Generalized Neurologic: responsive, motor weakness Skin: normal pigmentation, warm/dry MARY TORRES Apr 22, 2017 14:00
[2017-04-22 16:00] VITALS: BP 112/45
--- NOTE | 2017-04-22 17:07 | Infectious Diseases Prog Note ---
Assessment/Plan Problems: (1) UTI (urinary tract infection) Assessment & Plan: continue cefepime pending urine culture (2) Fever Assessment & Plan: due to sepsis and UTI, improving, continue antibiotics and tylenol (3) Sepsis Assessment & Plan: suspect due to uti , with gram negative rods, ok to stop vancomycin, continue cefepime pending identification and sensitivity Subjective ROS Limited/Unobtainable: Yes Allergies: Coded Allergies: No Known Allergies (Unverified , 12/14/12) Objective Vital Signs Last 24 Hour Vital Signs Date Time Temp Pulse Resp B/P (MAP) Pulse Ox O2 Delivery O2 Flow Rate FiO2 04/22/17 16:00 97.8 69 19 112/45 96 Room Air 04/22/17 12:00 98.1 66 19 107/53 98 Room Air 04/22/17 12:00 67 04/22/17 08:00 98.4 86 19 106/58 96 Room Air 04/22/17 08:00 69 04/22/17 04:23 98.1 69 20 110/60 95 Room Air 04/22/17 04:00 68 04/22/17 00:00 66 04/21/17 23:42 97.7 67 20 113/50 96 Room Air 04/21/17 20:00 96 04/21/17 20:00 97.7 78 20 138/68 96 Room Air Height (Feet): 5 Height (Inches): 4.00 Weight (Pounds): 140 General Appearance: WD/WN, no acute distress HEENT: normocephalic, atraumatic, anicteric, mucous membranes moist Respiratory/Chest: chest wall non-tender, lungs clear, normal breath sounds, no respiratory distress Cardiovascular: normal peripheral pulses, normal rate, regular rhythm Abdomen: normal bowel sounds, soft, non tender, no organomegaly, non distended Extremities: no cyanosis, no clubbing Skin: no rash, no lesions Microbiology Date/Time Source Procedure Growth Status 04/21/17 07:00 Blood Blood Culture - Preliminary Resulted 04/21/17 16:14 Urine,Clean Catch Urine Culture - Preliminary NO GROWTH Resulted 04/21/17 07:30 Urine,Clean Catch Urine Culture - Preliminary Gram Negative Bacillus 1 Resulted Laboratory Tests Test 04/22/17 07:20 White Blood Count 17.7 K/UL (4.8-10.8) H Red Blood Count 3.65 M/UL (4.20-5.40) L Hemoglobin 12.5 G/DL (12.0-16.0) Hematocrit 35.2 % (37.0-47.0) L Mean Corpuscular Volume 96 FL (80-99) Mean Corpuscular Hemoglobin 34.2 PG (27.0-31.0) H Mean Corpuscular Hemoglobin Concent 35.6 G/DL (32.0-36.0) Red Cell Distribution Width 11.6 % (11.6-14.8) Platelet Count 173 K/UL (150-450) Mean Platelet Volume 5.9 FL (6.5-10.1) L Neutrophils (%) (Auto) 81.7 % (45.0-75.0) H Lymphocytes (%) (Auto) 11.7 % (20.0-45.0) L Monocytes (%) (Auto) 6.3 % (1.0-10.0) Eosinophils (%) (Auto) 0.1 % (0.0-3.0) Basophils (%) (Auto) 0.2 % (0.0-2.0) Sodium Level 138 mEQ/L (135-145) Potassium Level 3.9 mEQ/L (3.4-4.9) Chloride Level 103 mEQ/L (98-107) Carbon Dioxide Level 22 mEQ/L (20-30) Anion Gap 13 (5-15) Blood Urea Nitrogen 16 mg/dL (7-23) Creatinine 1.3 mg/dL (0.5-0.9) H Estimat Glomerular Filtration Rate mL/min (>60) Glucose Level 166 mg/dL (74-106) H Uric Acid 5.3 mg/dL (3.0-7.5) Calcium Level 8.7 mg/dL (8.6-10.2) Total Bilirubin 0.3 mg/dL (0.0-1.2) Aspartate Amino Transf (AST/SGOT) 11 U/L (5-40) Alanine Aminotransferase (ALT/SGPT) 12 U/L (3-33) Alkaline Phosphatase 62 U/L (35-104) Total Creatine Kinase 63 U/L (26-140) Total Protein 6.5 g/dL (6.6-8.7) L Albumin 3.6 g/dL (3.5-5.2) Globulin 2.9 g/dL Albumin/Globulin Ratio 1.2 (1.0-2.7) Current Medications Medications (Trade) Dose Ordered Sig/Milvia Route PRN Reason Start Time Stop Time Status Last Admin Dose Admin Acetaminophen (Tylenol) 650 mg Q4H PRN ORAL fever 04/21/17 10:00 05/21/17 09:59 Albuterol/ Ipratropium (DuoNeb 0.5-3(2.5)mg/3ml) 3 ml Q4H PRN HHN Shortness of Breath 04/21/17 10:00 04/26/17 09:59 Cefepime HCl 1 gm/ Dextrose 55 ml @ 110 mls/hr Q24H IVPB 04/22/17 09:00 04/29/17 08:59 04/22/17 11:38 Dextrose (Dextrose 50%) STAT PRN IV Hypoglycemia 04/21/17 16:30 05/21/17 16:29 Divalproex Sodium (Depakote) 500 mg THREE TIMES A DAY ORAL 04/21/17 13:00 05/21/17 12:59 04/22/17 16:48 Heparin Sodium (Porcine) (Heparin 5000 units/ml) 5,000 units EVERY 12 HOURS SUBQ 04/21/17 21:00 05/21/17 20:59 04/22/17 10:05 Insulin Aspart (NovoLOG) BEFORE MEALS AND HS SUBQ 04/21/17 17:00 05/21/17 16:59 04/22/17 16:51 Lorazepam (Ativan) 0.5 mg Q6H PRN ORAL For Anxiety 04/22/17 05:00 04/29/17 04:59 Morphine Sulfate (Morphine Sulfate) 2 mg Q4H PRN IVP Moderate Pain (Pain Scale 4-6) 04/21/17 10:00 04/28/17 09:59 Olanzapine (ZyPREXA) 5 mg DAILY ORAL 04/22/17 09:00 05/22/17 08:59 04/22/17 10:03 Olanzapine (ZyPREXA) 5 mg QHS ORAL 04/22/17 21:00 05/22/17 20:59 Ondansetron HCl (Zofran) 4 mg Q6H PRN IVP Nausea & Vomiting 04/21/17 10:00 05/21/17 09:59 Phenazopyridine HCl (Pyridium) 100 mg DAILYPRN PRN ORAL dysuria 04/21/17 10:00 05/21/17 09:59 Polyethylene Glycol (Miralax) 17 gm DAILYPRN PRN ORAL Constipation 04/21/17 10:00 05/21/17 09:59 Temazepam (Restoril) 15 mg HSPRN PRN ORAL Insomnia 04/21/17 10:00 04/28/17 09:59 04/21/17 21:55 Trazodone HCl (Desyrel) 100 mg BEDTIME ORAL 04/21/17 21:00 05/21/17 20:59 04/21/17 20:59 Mary Islas M.D. Apr 22, 2017 17:07
--- NOTE | 2017-04-22 17:15 | Consultation ---
DATE OF CONSULTATION: NOTE: INCOMPLETE DICTATION. HISTORY OF PRESENT ILLNESS: This is an 87-year-old female. Valentin Jefferson M.D. DR: MARY JOB#: [id number] CC:
--- NOTE | 2017-04-22 19:17 | Cardiology Report ---
APPROVED REPORT EKG Measurement Heart [id number] Sinus tachycardia Otherwise normal ECG
[2017-04-22 20:00] VITALS: BP 136/69
[2017-04-22 20:53] LABS: APPEARANCE,URINE CLEAR; KETONES,URINE 1+ (NEGATIVE); LEUKOCYTE ESTERASE ,URINE 2+ (NEGATIVE); NITRITE,URINE NEGATIVE (NEGATIVE); PH,URINE 7 (4.5-8.0); PROTEIN,URINE NEGATIVE (NEGATIVE); UROBILINOGEN,URINE NORMAL MG/DL (0.0-1.0)
[2017-04-22] MEDS ORDERED: Morphine Sulfate 2mg/ml Inj IVP PRN (21:00)
[2017-04-22] MEDS ORDERED: Albuterol/Ipratropium 3ml neb HHN PRN (21:00)
[2017-04-22] MEDS ORDERED: Miralax 17gm pkt ORAL PRN (21:00)
[2017-04-22 21:32] LABS: AMORPHOUS SEDIMENT,UR FEW /LPF; BACTERIA,URINE FEW /HPF; SQUAMOUS EPITHELIAL CELL,UR FEW /LPF (NONE/OCC)
[2017-04-22] MEDS: TraZODone 100mg tab ORAL SCH (21:33)
[2017-04-22 23:19] VITALS: BP 118/57
--- NOTE | 2017-04-23 03:00 | Consultation ---
DATE OF CONSULTATION: INFECTIOUS DISEASES CONSULTATION REQUESTING PHYSICIAN: Ap Dalton D.O. Reason For Consultation: Sepsis, urinary tract infection. Recommendation for antibiotics therapy. History Of Present Illness: The patient is an 87-year-old female with past medical history of schizophrenia, diabetes, cervical cancer, and GERD, [facility] a [facility] and hit her head and scraped her left arm. The patient was sent to the [facility] emergency room for evaluation and management. After her fall, she was found to have sepsis with leukocytosis and urine tract infection. So, she was started on vancomycin and cefepime by the admitting physician and I was consulted for antibiotics treatment and further management. As of note, the patient is poor historian, cannot provide any history. Past Medical History: Significant for schizophrenia, GERD, diabetes, and cervical cancer. PAST SURGICAL HISTORY: Unknown. Medications: She is on cefepime and vancomycin. For the rest of her medications, please refer to MAR. ALLERGIES: She has no known drug allergy. Social History: She lives at the assisted living. No recent drugs, tobacco, or alcohol. PHYSICAL EXAMINATION: GENERAL: Elderly female, lying in bed, nonverbal, not in distress. Vital Signs: Temperature 98 degrees, pulse 90, respirations 20, blood pressure 138/89, and saturation 99% on room air. HEENT: Normocephalic and atraumatic. Pupils are reactive to light. Moist oral mucosa. No exudate. NECK: Supple. No lymphadenopathy. CARDIOVASCULAR: Tachycardic. S1 and S2 normal. LUNGS: Clear bilaterally. Diminished breathing sounds at the bases. ABDOMEN: Soft, nontender, and nondistended. No organomegaly. EXTREMITY: No edema or cyanosis. Skin: She had abrasion on the left elbow and laceration on her scalp. Laboratory And Diagnostic Data: Labs showed white count of 20.5 and platelets 223. BUN of 24 and creatinine of 1.3. Urinalysis showed positive nitrite, +2 leukocyte esterase, WBC 15 to 20, and many bacteria. Imaging, chest x-ray showed no acute infiltrate or effusion. Head CT scan showed no bleeding or acute pathology. ASSESSMENT AND RECOMMENDATIONS: 1. Urinary tract infection. We will send urine culture. Continue cefepime empirically, pending culture results. 2. Fever, suspect due to sepsis and urinary tract infection. Continue wide-spectrum antibiotics and Tylenol as needed. 3. Sepsis with leukocytosis, source is likely urinary tract infection. Continue vancomycin and cefepime, empiric treatment, pending culture results. Thank you for the consult. Mary Islas M.D. DR: FARHANA JOB#: [id number] CC:
[2017-04-23 03:58] VITALS: BP 132/69
[2017-04-23] MEDS: NovoLOG Insulin Flexpen SUBQ SCH ×4 (06:11→20:25)
[2017-04-23 07:14] LABS: BASOPHILS % (AUTO) 0.3 % (0.0-2.0); EOSINOPHILS % (AUTO) 0.7 % (0.0-3.0); LYMPHOCYTES % (AUTO) 16.6 % (20.0-45.0); MEAN CORPUSCULAR HEMOGLOBIN 33.8 PG (27.0-31.0); MEAN CORPUSCULAR HGB CONC 35.1 G/DL (32.0-36.0); MEAN CORPUSCULAR VOLUME 97 FL (80-99); MEAN PLATELET VOLUME 5.7 FL (6.5-10.1); MONOCYTES % (AUTO) 6.2 % (1.0-10.0); NEUTROPHILS % (AUTO) 76.2 % (45.0-75.0); PLATELET COUNT 180 K/UL (150-450); RED BLOOD COUNT 3.64 M/UL (4.20-5.40); RED CELL DISTRIBUTION WIDTH 11.5 % (11.6-14.8); WHITE BLOOD COUNT 11.1 K/UL (4.8-10.8)
[2017-04-23 07:52] LABS: ALANINE AMINOTRANSFERASE 15 U/L (3-33); ANION GAP 16 (5-15); ASPARTATE AMINO TRANSFERASE 13 U/L (5-40); CARBON DIOXIDE 21 mEQ/L (20-30); CHLORIDE 103 mEQ/L (98-107); CREATININE 1.2 mg/dL (0.5-0.9); HEMOLYSIS 0; MAGNESIUM 1.8 mg/dL (1.7-2.5); PHOSPHORUS 3.1 mg/dL (2.5-4.8); POTASSIUM 3.7 mEQ/L (3.4-4.9); SODIUM 140 mEQ/L (135-145); TOTAL PROTEIN 6.9 g/dL (6.6-8.7)
[2017-04-23 08:00] VITALS: BP 128/66
[2017-04-23] MEDS: Depakote 500mg tab ORAL SCH ×3 (09:18→17:20)
[2017-04-23] MEDS: Heparin 5000 units/ml inj SUBQ SCH ×2 (09:19→20:24)
[2017-04-23] MEDS: Cefepime HCl 1 GM in D5W 55 ML IVPB SCH (10:18)
[2017-04-23 12:00] VITALS: BP 135/72
--- NOTE | 2017-04-23 12:57 | General Progress Note ---
Assessment/Plan Problem List: (1) Malnutrition ICD Codes: E46 - Unspecified protein-calorie malnutrition SNOMED: 2198624 (2) Fever ICD Codes: R50.9 - Fever, unspecified SNOMED: 097184110 (3) Schizophrenia ICD Codes: F20.9 - Schizophrenia, unspecified SNOMED: 27648735 Qualifiers: Qualified Codes: F20.9 - Schizophrenia, unspecified (4) Sepsis ICD Codes: A41.9 - Sepsis, unspecified organism SNOMED: 01265281 Qualifiers: Qualified Codes: A41.9 - Sepsis, unspecified organism (5) Diabetes mellitus ICD Codes: E11.9 - Type 2 diabetes mellitus without complications SNOMED: 64254644 (6) UTI (urinary tract infection) ICD Codes: N39.0 - Urinary tract infection, site not specified SNOMED: 72128790 Qualifiers: Qualified Codes: N30.00 - Acute cystitis without hematuria (7) Hypertension ICD Codes: I10 - Essential (primary) hypertension SNOMED: 26695819 Status: stable, progressing, tolerating diet Assessment/Plan ot pt diet abx bp bs control cbc bmp in amdc plan w hhl Subjective Constitutional: Reports: weakness Allergies: Coded Allergies: No Known Allergies (Unverified , 12/14/12) All Systems: reviewed and negative except above Subjective sleepy in bed calm Objective Last 24 Hour Vital Signs Date Time Temp Pulse Resp B/P (MAP) Pulse Ox O2 Delivery O2 Flow Rate FiO2 04/23/17 12:00 97.3 60 20 135/72 99 Room Air 04/23/17 08:00 98.2 68 20 128/66 98 Room Air 04/23/17 03:58 97.7 76 19 132/69 98 Room Air 04/22/17 23:19 98.0 81 19 118/57 96 Room Air 04/22/17 20:00 97.7 59 18 136/69 96 Room Air 04/22/17 16:00 97.8 69 19 112/45 96 Room Air 04/22/17 16:00 71 Laboratory Tests 04/22/17 18:30: Urine Color Pale yellow, Urine Appearance Clear, Urine pH 7, Urine Specific [place] 1.005, Urine Protein Negative, Urine Glucose (UA) Negative, Urine Ketones 1+H, Urine Occult Blood 2+H, Urine Nitrite Negative, Urine Bilirubin Negative, Urine Urobilinogen Normal, Urine Leukocyte Esterase 2+H, Urine RBC 5- 10H, Urine WBC 2-4, Urine Squamous Epithelial Cells Few, Urine Amorphous Sediment FewH, Urine Bacteria Few, Urine Eosinophils None seen, Urine Random Sodium 99, Urine Potassium Timed 32 04/23/17 05:30: Sodium Level 140, Potassium Level 3.7, Chloride Level 103, Carbon Dioxide Level 21, Anion Gap 16H, Blood Urea Nitrogen 17, Creatinine 1.2H, Estimat Glomerular Filtration Rate , Glucose Level 104, Calcium Level 9.0, Phosphorus Level 3.1, Magnesium Level 1.8, Total Bilirubin 0.3, Aspartate Amino Transf (AST/SGOT) 13, Alanine Aminotransferase (ALT/SGPT) 15, Alkaline Phosphatase 72, Total Protein 6.9, Albumin 3.5, Globulin 3.4, Albumin/Globulin Ratio 1.0 04/23/17 05:35: White Blood Count 11.1H, Red Blood Count 3.64L, Hemoglobin 12.3, Hematocrit 35.1L, Mean Corpuscular Volume 97, Mean Corpuscular Hemoglobin 33.8H, Mean Corpuscular Hemoglobin Concent 35.1, Red Cell Distribution Width 11.5L, Platelet Count 180, Mean Platelet Volume 5.7L, Neutrophils (%) (Auto) 76.2H, Lymphocytes (%) (Auto) 16.6L, Monocytes (%) (Auto) 6.2, Eosinophils (%) (Auto) 0.7, Basophils (%) (Auto) 0.3 Height (Feet): 5 Height (Inches): 4.00 Weight (Pounds): 140 General Appearance: lethargic, confused EENT: normal ENT inspection Neck: normal alignment Cardiovascular: normal peripheral pulses, normal rate, regular rhythm Respiratory/Chest: chest wall non-tender, lungs clear, normal breath sounds Abdomen: normal bowel sounds, non tender, soft Extremities: normal inspection Edema: no edema noted Arm (L), no edema noted Arm (R), no edema noted Leg (L), no edema noted Leg (R), no edema noted Pedal (L), no edema noted Pedal (R), no edema noted Generalized Neurologic: motor weakness Skin: normal pigmentation, warm/dry MARY TORRES Apr 23, 2017 12:57
--- NOTE | 2017-04-23 15:10 | Diagnostic Imaging Report ---
Indication:Elevated Bun and Creatinine. Technique: Grayscale and duplex Doppler imaging of the kidneys performed. Comparison: None Findings: The size, contour, and echogenicity of both kidneys are within normal limits. There are small bilateral renal cysts present. Both kidneys are between 9 and 10 cm in length. There is no hydronephrosis. The IVC and urinary bladder are unremarkable. Impression: Essentially negative exam. Small bilateral renal cysts noted.
[2017-04-23 16:00] VITALS: BP 144/91
--- NOTE | 2017-04-23 17:22 | Infectious Diseases Prog Note ---
Assessment/Plan Problems: (1) UTI (urinary tract infection) Assessment & Plan: with E coli, continue cefepime pending urine culture (2) Fever Assessment & Plan: due to sepsis and UTI, improving, continue antibiotics and tylenol (3) Sepsis Assessment & Plan: suspect due to uti , with gram negative rods, continue cefepime pending identification and sensitivity , will repeat blood culture to confirm clearance Subjective ROS Limited/Unobtainable: Yes Allergies: Coded Allergies: No Known Allergies (Unverified , 12/14/12) Subjective she was comfortable, resting in bed, not in distress Objective Vital Signs Last 24 Hour Vital Signs Date Time Temp Pulse Resp B/P (MAP) Pulse Ox O2 Delivery O2 Flow Rate FiO2 04/23/17 16:00 97.7 61 20 144/91 98 Room Air 04/23/17 12:00 97.3 60 20 135/72 99 Room Air 04/23/17 08:00 98.2 68 20 128/66 98 Room Air 04/23/17 03:58 97.7 76 19 132/69 98 Room Air 04/22/17 23:19 98.0 81 19 118/57 96 Room Air 04/22/17 20:00 97.7 59 18 136/69 96 Room Air Height (Feet): 5 Height (Inches): 4.00 Weight (Pounds): 140 General Appearance: WD/WN, no acute distress HEENT: normocephalic, atraumatic, anicteric, mucous membranes moist Respiratory/Chest: chest wall non-tender, lungs clear, normal breath sounds, no respiratory distress, no accessory muscle use Cardiovascular: normal peripheral pulses, normal rate, regular rhythm, no gallop/murmur, no JVD Abdomen: normal bowel sounds, soft, non tender, no organomegaly, non distended , no mass Extremities: no cyanosis, no clubbing Skin: no rash, no lesions Microbiology Date/Time Source Procedure Growth Status 04/21/17 07:00 Blood Blood Culture - Preliminary Gram Negative Bacillus 1 Resulted 04/21/17 06:55 Blood Blood Culture - Preliminary NO GROWTH AFTER 24 HOURS Resulted 04/21/17 08:58 Nasal Nares MRSA Culture - Final NO METHICILLIN RESISTANT STAPH AUREUS... Complete 04/21/17 16:14 Urine,Clean Catch Urine Culture - Preliminary NO GROWTH AFTER 24 HOURS Resulted 04/21/17 07:30 Urine,Clean Catch Urine Culture - Final Escherichia Coli Complete 04/21/17 08:58 Rectum VRE Culture - Final NO VANCOMYCIN RESISTANT ENTEROCOCCUS ... Complete Laboratory Tests Test 04/22/17 18:30 04/23/17 05:30 04/23/17 05:35 Urine Color Pale yellow Urine Appearance Clear Urine pH 7 (4.5-8.0) Urine Specific [place] 1.005 (1.005-1.035) Urine Protein Negative (NEGATIVE) Urine Glucose (UA) Negative (NEGATIVE) Urine Ketones 1+ (NEGATIVE) H Urine Occult Blood 2+ (NEGATIVE) H Urine Nitrite Negative (NEGATIVE) Urine Bilirubin Negative (NEGATIVE) Urine Urobilinogen Normal MG/DL (0.0-1.0) Urine Leukocyte Esterase 2+ (NEGATIVE) H Urine RBC 5-10 /HPF (0 - 2) H Urine WBC 2-4 /HPF (0 - 2) Urine Squamous Epithelial Cells Few /LPF (NONE/OCC) Urine Amorphous Sediment Few /LPF (NONE) H Urine Bacteria Few /HPF (NONE) Urine Eosinophils None seen Urine Random Sodium 99 mmol/L Urine Potassium Timed 32 mmol/L Sodium Level 140 mEQ/L (135-145) Potassium Level 3.7 mEQ/L (3.4-4.9) Chloride Level 103 mEQ/L (98-107) Carbon Dioxide Level 21 mEQ/L (20-30) Anion Gap 16 (5-15) H Blood Urea Nitrogen 17 mg/dL (7-23) Creatinine 1.2 mg/dL (0.5-0.9) H Estimat Glomerular Filtration Rate mL/min (>60) Glucose Level 104 mg/dL (74-106) Calcium Level 9.0 mg/dL (8.6-10.2) Phosphorus Level 3.1 mg/dL (2.5-4.8) Magnesium Level 1.8 mg/dL (1.7-2.5) Total Bilirubin 0.3 mg/dL (0.0-1.2) Aspartate Amino Transf (AST/SGOT) 13 U/L (5-40) Alanine Aminotransferase (ALT/SGPT) 15 U/L (3-33) Alkaline Phosphatase 72 U/L (35-104) Total Protein 6.9 g/dL (6.6-8.7) Albumin 3.5 g/dL (3.5-5.2) Globulin 3.4 g/dL Albumin/Globulin Ratio 1.0 (1.0-2.7) White Blood Count 11.1 K/UL (4.8-10.8) H Red Blood Count 3.64 M/UL (4.20-5.40) L Hemoglobin 12.3 G/DL (12.0-16.0) Hematocrit 35.1 % (37.0-47.0) L Mean Corpuscular Volume 97 FL (80-99) Mean Corpuscular Hemoglobin 33.8 PG (27.0-31.0) H Mean Corpuscular Hemoglobin Concent 35.1 G/DL (32.0-36.0) Red Cell Distribution Width 11.5 % (11.6-14.8) L Platelet Count 180 K/UL (150-450) Mean Platelet Volume 5.7 FL (6.5-10.1) L Neutrophils (%) (Auto) 76.2 % (45.0-75.0) H Lymphocytes (%) (Auto) 16.6 % (20.0-45.0) L Monocytes (%) (Auto) 6.2 % (1.0-10.0) Eosinophils (%) (Auto) 0.7 % (0.0-3.0) Basophils (%) (Auto) 0.3 % (0.0-2.0) Current Medications Medications (Trade) Dose Ordered Sig/Milvia Route PRN Reason Start Time Stop Time Status Last Admin Dose Admin Acetaminophen (Tylenol) 650 mg Q4H PRN ORAL fever 04/22/17 21:00 05/21/17 20:59 Albuterol/ Ipratropium (DuoNeb 0.5-3(2.5)mg/3ml) 3 ml Q4H PRN HHN Shortness of Breath 04/22/17 21:00 04/26/17 20:59 Cefepime HCl 1 gm/ Dextrose 55 ml @ 110 mls/hr Q24H IVPB 04/23/17 09:00 04/29/17 08:59 04/23/17 10:18 Dextrose (Dextrose 50%) STAT PRN IV Hypoglycemia 04/23/17 16:30 05/21/17 16:29 Divalproex Sodium (Depakote) 500 mg THREE TIMES A DAY ORAL 04/23/17 09:00 05/21/17 12:59 04/23/17 17:20 Heparin Sodium (Porcine) (Heparin 5000 units/ml) 5,000 units EVERY 12 HOURS SUBQ 04/22/17 21:00 05/21/17 20:59 04/23/17 09:19 Insulin Aspart (NovoLOG) BEFORE MEALS AND HS SUBQ 04/22/17 21:00 05/21/17 16:59 04/22/17 21:48 Lorazepam (Ativan) 0.5 mg Q6H PRN ORAL For Anxiety 04/22/17 21:00 04/29/17 20:59 Morphine Sulfate (Morphine Sulfate) 2 mg Q4H PRN IVP Moderate Pain (Pain Scale 4-6) 04/22/17 21:00 04/28/17 20:59 Olanzapine (ZyPREXA) 5 mg DAILY ORAL 04/23/17 09:00 05/22/17 08:59 04/23/17 09:17 Olanzapine (ZyPREXA) 5 mg QHS ORAL 04/22/17 21:00 05/22/17 20:59 04/22/17 21:33 Ondansetron HCl (Zofran) 4 mg Q6H PRN IVP Nausea & Vomiting 04/22/17 21:00 05/21/17 20:59 Phenazopyridine HCl (Pyridium) 100 mg DAILYPRN PRN ORAL dysuria 04/22/17 21:00 05/22/17 20:59 Polyethylene Glycol (Miralax) 17 gm DAILYPRN PRN ORAL Constipation 04/22/17 21:00 05/22/17 20:59 Temazepam (Restoril) 15 mg HSPRN PRN ORAL Insomnia 04/22/17 21:00 04/29/17 20:59 04/22/17 21:42 Trazodone HCl (Desyrel) 100 mg BEDTIME ORAL 04/22/17 21:00 05/21/17 20:59 04/22/17 21:33 Mary Islas M.D. Apr 23, 2017 17:22
--- NOTE | 2017-04-23 18:18 | Pulmonology Progress Note ---
Assessment/Plan Problems: (1) Bacteremia (2) Sepsis (3) UTI (urinary tract infection) (4) Diabetes mellitus (5) Hypertension (6) Schizophrenia (7) Fall Assessment/Plan sinus rhythim improving renal studies IV abx, check cultures [place] culture sliding scale diabetic diet dvt prophylaxis Subjective ROS Limited/Unobtainable: No Constitutional: Reports: no symptoms HEENT: Repors: no symptoms Respiratory: Reports: no symptoms Allergies: Coded Allergies: No Known Allergies (Unverified , 12/14/12) Objective Last 24 Hour Vital Signs Date Time Temp Pulse Resp B/P (MAP) Pulse Ox O2 Delivery O2 Flow Rate FiO2 04/23/17 16:00 97.7 61 20 144/91 98 Room Air 04/23/17 12:00 97.3 60 20 135/72 99 Room Air 04/23/17 08:00 98.2 68 20 128/66 98 Room Air 04/23/17 03:58 97.7 76 19 132/69 98 Room Air 04/22/17 23:19 98.0 81 19 118/57 96 Room Air 04/22/17 20:00 97.7 59 18 136/69 96 Room Air Intake and Output 04/23/17 04/24/17 19:00 07:00 Intake Total 55 ml Balance 55 ml IV Total 55 ml General Appearance: WD/WN HEENT: normocephalic, anicteric Respiratory/Chest: chest wall non-tender, lungs clear Breasts: no masses Cardiovascular: normal peripheral pulses Abdomen: normal bowel sounds, soft, non tender Extremities: no cyanosis Skin: no lesions Neurologic/Psychiatric: occ med physician II-XII grossly normal Microbiology Date/Time Source Procedure Growth Status 04/21/17 07:00 Blood Blood Culture - Preliminary Gram Negative Bacillus 1 Resulted 04/21/17 06:55 Blood Blood Culture - Preliminary NO GROWTH AFTER 24 HOURS Resulted 04/21/17 08:58 Nasal Nares MRSA Culture - Final NO METHICILLIN RESISTANT STAPH AUREUS... Complete 04/21/17 16:14 Urine,Clean Catch Urine Culture - Preliminary NO GROWTH AFTER 24 HOURS Resulted 04/21/17 07:30 Urine,Clean Catch Urine Culture - Final Escherichia Coli Complete 04/21/17 08:58 Rectum VRE Culture - Final NO VANCOMYCIN RESISTANT ENTEROCOCCUS ... Complete Laboratory Tests 04/22/17 18:30: Urine Color Pale yellow, Urine Appearance Clear, Urine pH 7, Urine Specific [place] 1.005, Urine Protein Negative, Urine Glucose (UA) Negative, Urine Ketones 1+H, Urine Occult Blood 2+H, Urine Nitrite Negative, Urine Bilirubin Negative, Urine Urobilinogen Normal, Urine Leukocyte Esterase 2+H, Urine RBC 5- 10H, Urine WBC 2-4, Urine Squamous Epithelial Cells Few, Urine Amorphous Sediment FewH, Urine Bacteria Few, Urine Eosinophils None seen, Urine Random Sodium 99, Urine Potassium Timed 32 04/23/17 05:30: Sodium Level 140, Potassium Level 3.7, Chloride Level 103, Carbon Dioxide Level 21, Anion Gap 16H, Blood Urea Nitrogen 17, Creatinine 1.2H, Estimat Glomerular Filtration Rate , Glucose Level 104, Calcium Level 9.0, Phosphorus Level 3.1, Magnesium Level 1.8, Total Bilirubin 0.3, Aspartate Amino Transf (AST/SGOT) 13, Alanine Aminotransferase (ALT/SGPT) 15, Alkaline Phosphatase 72, Total Protein 6.9, Albumin 3.5, Globulin 3.4, Albumin/Globulin Ratio 1.0 04/23/17 05:35: White Blood Count 11.1H, Red Blood Count 3.64L, Hemoglobin 12.3, Hematocrit 35.1L, Mean Corpuscular Volume 97, Mean Corpuscular Hemoglobin 33.8H, Mean Corpuscular Hemoglobin Concent 35.1, Red Cell Distribution Width 11.5L, Platelet Count 180, Mean Platelet Volume 5.7L, Neutrophils (%) (Auto) 76.2H, Lymphocytes (%) (Auto) 16.6L, Monocytes (%) (Auto) 6.2, Eosinophils (%) (Auto) 0.7, Basophils (%) (Auto) 0.3 Current Medications Medications (Trade) Dose Ordered Sig/Milvia Route PRN Reason Start Time Stop Time Status Last Admin Dose Admin Acetaminophen (Tylenol) 650 mg Q4H PRN ORAL fever 04/22/17 21:00 05/21/17 20:59 Albuterol/ Ipratropium (DuoNeb 0.5-3(2.5)mg/3ml) 3 ml Q4H PRN HHN Shortness of Breath 04/22/17 21:00 04/26/17 20:59 Cefepime HCl 1 gm/ Dextrose 55 ml @ 110 mls/hr Q24H IVPB 04/23/17 09:00 04/29/17 08:59 04/23/17 10:18 Dextrose (Dextrose 50%) STAT PRN IV Hypoglycemia 04/23/17 16:30 05/21/17 16:29 Divalproex Sodium (Depakote) 500 mg THREE TIMES A DAY ORAL 04/23/17 09:00 05/21/17 12:59 04/23/17 17:20 Heparin Sodium (Porcine) (Heparin 5000 units/ml) 5,000 units EVERY 12 HOURS SUBQ 04/22/17 21:00 05/21/17 20:59 04/23/17 09:19 Insulin Aspart (NovoLOG) BEFORE MEALS AND HS SUBQ 04/22/17 21:00 05/21/17 16:59 04/22/17 21:48 Lorazepam (Ativan) 0.5 mg Q6H PRN ORAL For Anxiety 04/22/17 21:00 04/29/17 20:59 Morphine Sulfate (Morphine Sulfate) 2 mg Q4H PRN IVP Moderate Pain (Pain Scale 4-6) 04/22/17 21:00 04/28/17 20:59 Olanzapine (ZyPREXA) 5 mg DAILY ORAL 04/23/17 09:00 05/22/17 08:59 04/23/17 09:17 Olanzapine (ZyPREXA) 5 mg QHS ORAL 04/22/17 21:00 05/22/17 20:59 04/22/17 21:33 Ondansetron HCl (Zofran) 4 mg Q6H PRN IVP Nausea & Vomiting 04/22/17 21:00 05/21/17 20:59 Phenazopyridine HCl (Pyridium) 100 mg DAILYPRN PRN ORAL dysuria 04/22/17 21:00 05/22/17 20:59 Polyethylene Glycol (Miralax) 17 gm DAILYPRN PRN ORAL Constipation 04/22/17 21:00 05/22/17 20:59 Temazepam (Restoril) 15 mg HSPRN PRN ORAL Insomnia 04/22/17 21:00 04/29/17 20:59 04/22/17 21:42 Trazodone HCl (Desyrel) 100 mg BEDTIME ORAL 04/22/17 21:00 05/21/17 20:59 04/22/17 21:33 EFREM BETANCUR 3, 2017 18:18
[2017-04-23] MEDS: LORazepam 0.5mg tab ORAL PRN (19:25)
[2017-04-23 19:38] VITALS: BP 140/66
[2017-04-23] MEDS: TraZODone 100mg tab ORAL SCH (20:22)
[2017-04-23 23:51] VITALS: BP 150/64
[2017-04-24 04:00] VITALS: BP 141/69
[2017-04-24] MEDS: NovoLOG Insulin Flexpen SUBQ SCH ×4 (05:41→21:08)
[2017-04-24 07:29] VITALS: BP 136/70
[2017-04-24 08:30] LABS: BASOPHILS % (AUTO) 0.7 % (0.0-2.0); EOSINOPHILS % (AUTO) 1.4 % (0.0-3.0); LYMPHOCYTES % (AUTO) 43.2 % (20.0-45.0); MEAN CORPUSCULAR HGB CONC 35.4 G/DL (32.0-36.0); MEAN CORPUSCULAR VOLUME 96 FL (80-99); MEAN PLATELET VOLUME 5.6 FL (6.5-10.1); MONOCYTES % (AUTO) 8.6 % (1.0-10.0); NEUTROPHILS % (AUTO) 46.1 % (45.0-75.0); PLATELET COUNT 200 K/UL (150-450); RED BLOOD COUNT 3.89 M/UL (4.20-5.40); RED CELL DISTRIBUTION WIDTH 11.4 % (11.6-14.8); WHITE BLOOD COUNT 6.7 K/UL (4.8-10.8)
[2017-04-24 08:45] LABS: ANION GAP 13 (5-15); CALCIUM 9.5 mg/dL (8.6-10.2); CARBON DIOXIDE 24 mEQ/L (20-30); CHLORIDE 101 mEQ/L (98-107); CREATININE 1.1 mg/dL (0.5-0.9); HEMOLYSIS 0; POTASSIUM 3.7 mEQ/L (3.4-4.9); SODIUM 138 mEQ/L (135-145)
[2017-04-24] MEDS: Depakote 500mg tab ORAL SCH ×3 (09:24→17:25)
[2017-04-24] MEDS: Heparin 5000 units/ml inj SUBQ SCH ×2 (09:27→21:02)
[2017-04-24] MEDS: Cefepime HCl 1 GM in D5W 55 ML IVPB SCH (09:28)
[2017-04-24 11:46] VITALS: BP 148/78
[2017-04-24] MEDS: LORazepam 0.5mg tab ORAL PRN (12:59)
--- NOTE | 2017-04-24 13:40 | General Progress Note ---
Assessment/Plan Problem List: (1) Malnutrition ICD Codes: E46 - Unspecified protein-calorie malnutrition SNOMED: 2222482 (2) Fever ICD Codes: R50.9 - Fever, unspecified SNOMED: 082422187 (3) Schizophrenia ICD Codes: F20.9 - Schizophrenia, unspecified SNOMED: 98942181 Qualifiers: Qualified Codes: F20.9 - Schizophrenia, unspecified (4) Sepsis ICD Codes: A41.9 - Sepsis, unspecified organism SNOMED: 00020323 Qualifiers: Qualified Codes: A41.9 - Sepsis, unspecified organism (5) Diabetes mellitus ICD Codes: E11.9 - Type 2 diabetes mellitus without complications SNOMED: 77222747 (6) UTI (urinary tract infection) ICD Codes: N39.0 - Urinary tract infection, site not specified SNOMED: 34102467 Qualifiers: Qualified Codes: N30.00 - Acute cystitis without hematuria (7) Hypertension ICD Codes: I10 - Essential (primary) hypertension SNOMED: 70097003 Status: stable, progressing, tolerating diet Assessment/Plan ot pt diet abx bp bs control dc w hh Subjective Constitutional: Reports: weakness Allergies: Coded Allergies: No Known Allergies (Unverified , 12/14/12) All Systems: reviewed and negative except above Subjective sleepy in bed calm Objective Last 24 Hour Vital Signs Date Time Temp Pulse Resp B/P (MAP) Pulse Ox O2 Delivery O2 Flow Rate FiO2 04/24/17 11:46 97.7 68 20 148/78 100 Room Air 04/24/17 07:29 97.3 69 21 136/70 95 Room Air 04/24/17 04:00 97.3 74 18 141/69 97 Room Air 04/23/17 23:51 97.7 76 19 150/64 98 Room Air 04/23/17 19:38 97.8 62 19 140/66 96 Room Air 04/23/17 16:00 97.7 61 20 144/91 98 Room Air Intake and Output 04/24/17 04/25/17 19:00 07:00 Intake Total 480 ml Balance 480 ml Intake Oral 480 ml # Voids 4 # Bowel Movements 2 Laboratory Tests 04/24/17 07:00: White Blood Count 6.7, Red Blood Count 3.89L, Hemoglobin 13.2, Hematocrit 37.4, Mean Corpuscular Volume 96, Mean Corpuscular Hemoglobin 34.0H, Mean Corpuscular Hemoglobin Concent 35.4, Red Cell Distribution Width 11.4L, Platelet Count 200, Mean Platelet Volume 5.6L, Neutrophils (%) (Auto) 46.1, Lymphocytes (%) (Auto) 43.2, Monocytes (%) (Auto) 8.6, Eosinophils (%) (Auto) 1.4, Basophils (%) (Auto ) 0.7, Sodium Level 138, Potassium Level 3.7, Chloride Level 101, Carbon Dioxide Level 24, Anion Gap 13, Blood Urea Nitrogen 18, Creatinine 1.1H, Estimat Glomerular Filtration Rate , Glucose Level 90, Calcium Level 9.5 Height (Feet): 5 Height (Inches): 4.00 Weight (Pounds): 140 General Appearance: lethargic EENT: normal ENT inspection Neck: normal alignment Cardiovascular: normal peripheral pulses, normal rate, regular rhythm Respiratory/Chest: chest wall non-tender, lungs clear, normal breath sounds Abdomen: normal bowel sounds, non tender, soft Extremities: normal inspection Edema: no edema noted Arm (L), no edema noted Arm (R), no edema noted Leg (L), no edema noted Leg (R), no edema noted Pedal (L), no edema noted Pedal (R), no edema noted Generalized Neurologic: responsive, motor weakness Skin: normal pigmentation, warm/dry MARY TORRES Apr 24, 2017 13:40
[2017-04-24] MEDS ORDERED: DEPAKOTE250 MG PO (14:14)
[2017-04-24] MEDS ORDERED: TYLENOL650 MG/20. ORAL (14:14)
[2017-04-24] MEDS ORDERED: NOVOLOG100 UNIT/3 SUBQ (14:15)
[2017-04-24] MEDS ORDERED: DUONEB 0.5-3(2.53 ML HHN (14:15)
[2017-04-24] MEDS ORDERED: ZYPREXA10 MG ORAL (14:17)
[2017-04-24] MEDS ORDERED: ZYPREXA5 MG ORAL (14:17)
[2017-04-24] MEDS ORDERED: MORPHINE 22 MG/1 ML IV (14:17)
[2017-04-24] MEDS ORDERED: ATIVAN0.5 MG ORAL (14:17)
[2017-04-24] MEDS ORDERED: ZOFRAN 4 MG4 MG/2 ML IV (14:18)
[2017-04-24] MEDS ORDERED: PHENAZOPYRIDIN100 MG ORAL (14:18)
[2017-04-24] MEDS ORDERED: TRAZODONE HCL100 MG ORAL (14:19)
[2017-04-24] MEDS ORDERED: CEFEPIME-D2 GM/50 ML IVPB (14:19)
[2017-04-24] MEDS ORDERED: MIRALAX17 G2 ORAL (14:19)
[2017-04-24] MEDS ORDERED: RESTORIL15 MG ORAL (14:19)
[2017-04-24] MEDS ORDERED: CEFTRIAXON2 GM/50 ML IV (14:20)
[2017-04-24 16:00] VITALS: BP 149/80
--- NOTE | 2017-04-24 16:31 | Infectious Diseases Prog Note ---
Assessment/Plan Problems: (1) UTI (urinary tract infection) Assessment & Plan: with E coli, on cefepime , will switch to ceftriaxone and treat for 2 weeks, will repeat blood culture to confirm clearance (2) Fever Assessment & Plan: due to sepsis and UTI, improving, continue antibiotics and tylenol (3) Sepsis Assessment & Plan: suspect due to uti , with E.COLI, will switch cefepime to ceftriaxon , will repeat blood culture to confirm clearance Subjective ROS Limited/Unobtainable: Yes Allergies: Coded Allergies: No Known Allergies (Unverified , 12/14/12) Subjective she was comfortable, resting in bed, not in distress Objective Vital Signs Last 24 Hour Vital Signs Date Time Temp Pulse Resp B/P (MAP) Pulse Ox O2 Delivery O2 Flow Rate FiO2 04/24/17 16:00 98.2 62 20 149/80 99 Room Air 04/24/17 11:46 97.7 68 20 148/78 100 Room Air 04/24/17 07:29 97.3 69 21 136/70 95 Room Air 04/24/17 04:00 97.3 74 18 141/69 97 Room Air 04/23/17 23:51 97.7 76 19 150/64 98 Room Air 04/23/17 19:38 97.8 62 19 140/66 96 Room Air Height (Feet): 5 Height (Inches): 4.00 Weight (Pounds): 140 General Appearance: WD/WN, no acute distress HEENT: normocephalic, atraumatic, anicteric, mucous membranes moist, EOMI, pharynx normal, supple Respiratory/Chest: chest wall non-tender, lungs clear, normal breath sounds, no respiratory distress, no accessory muscle use Cardiovascular: normal peripheral pulses, normal rate, regular rhythm, no gallop/murmur, no JVD Abdomen: normal bowel sounds, soft, non tender, no organomegaly, non distended , no mass Extremities: no cyanosis, no clubbing Skin: no rash, no lesions Neurologic/Psychiatric: alert, oriented x 3 Lymphatic: no neck adenopathy, no groin adenopathy Laboratory Tests Test 04/24/17 07:00 White Blood Count 6.7 K/UL (4.8-10.8) Red Blood Count 3.89 M/UL (4.20-5.40) L Hemoglobin 13.2 G/DL (12.0-16.0) Hematocrit 37.4 % (37.0-47.0) Mean Corpuscular Volume 96 FL (80-99) Mean Corpuscular Hemoglobin 34.0 PG (27.0-31.0) H Mean Corpuscular Hemoglobin Concent 35.4 G/DL (32.0-36.0) Red Cell Distribution Width 11.4 % (11.6-14.8) L Platelet Count 200 K/UL (150-450) Mean Platelet Volume 5.6 FL (6.5-10.1) L Neutrophils (%) (Auto) 46.1 % (45.0-75.0) Lymphocytes (%) (Auto) 43.2 % (20.0-45.0) Monocytes (%) (Auto) 8.6 % (1.0-10.0) Eosinophils (%) (Auto) 1.4 % (0.0-3.0) Basophils (%) (Auto) 0.7 % (0.0-2.0) Sodium Level 138 mEQ/L (135-145) Potassium Level 3.7 mEQ/L (3.4-4.9) Chloride Level 101 mEQ/L (98-107) Carbon Dioxide Level 24 mEQ/L (20-30) Anion Gap 13 (5-15) Blood Urea Nitrogen 18 mg/dL (7-23) Creatinine 1.1 mg/dL (0.5-0.9) H Estimat Glomerular Filtration Rate mL/min (>60) Glucose Level 90 mg/dL (74-106) Calcium Level 9.5 mg/dL (8.6-10.2) Current Medications Medications (Trade) Dose Ordered Sig/Milvia Route PRN Reason Start Time Stop Time Status Last Admin Dose Admin Acetaminophen (Tylenol) 650 mg Q4H PRN ORAL fever 04/22/17 21:00 05/21/17 20:59 Albuterol/ Ipratropium (DuoNeb 0.5-3(2.5)mg/3ml) 3 ml Q4H PRN HHN Shortness of Breath 04/22/17 21:00 04/26/17 20:59 Ceftriaxone Sodium 2 gm/ Dextrose 110 ml @ 220 mls/hr Q24H IVPB 04/24/17 16:00 05/08/17 15:59 Dextrose (Dextrose 50%) STAT PRN IV Hypoglycemia 04/23/17 16:30 05/21/17 16:29 Divalproex Sodium (Depakote) 500 mg THREE TIMES A DAY ORAL 04/23/17 09:00 05/21/17 12:59 04/24/17 12:12 Heparin Sodium (Porcine) (Heparin 5000 units/ml) 5,000 units EVERY 12 HOURS SUBQ 04/22/17 21:00 05/21/17 20:59 04/24/17 09:27 Insulin Aspart (NovoLOG) BEFORE MEALS AND HS SUBQ 04/22/17 21:00 05/21/17 16:59 04/24/17 12:13 Lorazepam (Ativan) 0.5 mg Q6H PRN ORAL For Anxiety 04/22/17 21:00 04/29/17 20:59 04/24/17 12:59 Morphine Sulfate (Morphine Sulfate) 2 mg Q4H PRN IVP Moderate Pain (Pain Scale 4-6) 04/22/17 21:00 04/28/17 20:59 04/24/17 00:12 Olanzapine (ZyPREXA) 5 mg DAILY ORAL 04/23/17 09:00 05/22/17 08:59 04/24/17 09:24 Olanzapine (ZyPREXA) 5 mg QHS ORAL 04/22/17 21:00 05/22/17 20:59 04/23/17 20:22 Ondansetron HCl (Zofran) 4 mg Q6H PRN IVP Nausea & Vomiting 04/22/17 21:00 05/21/17 20:59 Phenazopyridine HCl (Pyridium) 100 mg DAILYPRN PRN ORAL dysuria 04/22/17 21:00 05/22/17 20:59 Polyethylene Glycol (Miralax) 17 gm DAILYPRN PRN ORAL Constipation 04/22/17 21:00 05/22/17 20:59 04/24/17 09:24 Temazepam (Restoril) 15 mg HSPRN PRN ORAL Insomnia 04/22/17 21:00 04/29/17 20:59 04/23/17 20:22 Trazodone HCl (Desyrel) 100 mg BEDTIME ORAL 04/22/17 21:00 05/21/17 20:59 04/23/17 20:22 Mray Islas M.D. Apr 24, 2017 16:31
[2017-04-24] MEDS ORDERED: Tubing IV Secondary IV ONE (16:45)
[2017-04-24] MEDS: cefTRIAXone 2 GM in D5W 110 ML IVPB SCH (17:21)
--- NOTE | 2017-04-24 18:45 | Progress Note ---
DATE: 04/24/2017 Subjective: The patient is an 87-year-old female patient. She is confused, disorganized, and altered mental status. Plan: My plan to continue treatment with medications to prevent any decline in her cognition. Chart reviewed and discussed with staff. Seen and assessed at bedside. Valentin Jefferson M.D. DR: MARY JOB#: [id number] CC:
[2017-04-24 20:00] VITALS: BP 128/76
[2017-04-24] MEDS: TraZODone 100mg tab ORAL SCH (21:01)
--- NOTE | 2017-04-24 21:39 | Pulmonology Progress Note ---
Assessment/Plan Problems: (1) Bacteremia (2) Sepsis (3) UTI (urinary tract infection) (4) Diabetes mellitus (5) Hypertension (6) Schizophrenia (7) Fall Assessment/Plan improving renal studies IV abx, check cultures [place] culture sliding scale diabetic diet dvt prophylaxis dc planning Subjective ROS Limited/Unobtainable: No Constitutional: Reports: no symptoms HEENT: Repors: no symptoms Respiratory: Reports: no symptoms Cardiovascular: Reports: no symptoms Allergies: Coded Allergies: No Known Allergies (Unverified , 12/14/12) Objective Last 24 Hour Vital Signs Date Time Temp Pulse Resp B/P (MAP) Pulse Ox O2 Delivery O2 Flow Rate FiO2 04/24/17 20:00 97.7 68 20 128/76 97 Room Air 04/24/17 16:00 98.2 62 20 149/80 99 Room Air 04/24/17 11:46 97.7 68 20 148/78 100 Room Air 04/24/17 07:29 97.3 69 21 136/70 95 Room Air 04/24/17 04:00 97.3 74 18 141/69 97 Room Air 04/23/17 23:51 97.7 76 19 150/64 98 Room Air Intake and Output 04/24/17 04/25/17 19:00 07:00 Intake Total 765 ml Balance 765 ml Intake Oral 600 ml IV Total 165 ml # Voids 11 # Bowel Movements 2 General Appearance: WD/WN HEENT: normocephalic Respiratory/Chest: chest wall non-tender, lungs clear Cardiovascular: normal peripheral pulses, normal rate Abdomen: normal bowel sounds, soft, non tender Genitourinary: normal external genitalia Extremities: no clubbing Neurologic/Psychiatric: redevelopment specialist II-XII grossly normal Lymphatic: no neck adenopathy Laboratory Tests 04/24/17 07:00: White Blood Count 6.7, Red Blood Count 3.89L, Hemoglobin 13.2, Hematocrit 37.4, Mean Corpuscular Volume 96, Mean Corpuscular Hemoglobin 34.0H, Mean Corpuscular Hemoglobin Concent 35.4, Red Cell Distribution Width 11.4L, Platelet Count 200, Mean Platelet Volume 5.6L, Neutrophils (%) (Auto) 46.1, Lymphocytes (%) (Auto) 43.2, Monocytes (%) (Auto) 8.6, Eosinophils (%) (Auto) 1.4, Basophils (%) (Auto ) 0.7, Sodium Level 138, Potassium Level 3.7, Chloride Level 101, Carbon Dioxide Level 24, Anion Gap 13, Blood Urea Nitrogen 18, Creatinine 1.1H, Estimat Glomerular Filtration Rate , Glucose Level 90, Calcium Level 9.5 Current Medications Medications (Trade) Dose Ordered Sig/Milvia Route PRN Reason Start Time Stop Time Status Last Admin Dose Admin Acetaminophen (Tylenol) 650 mg Q4H PRN ORAL fever 04/22/17 21:00 05/21/17 20:59 Albuterol/ Ipratropium (DuoNeb 0.5-3(2.5)mg/3ml) 3 ml Q4H PRN HHN Shortness of Breath 04/22/17 21:00 04/26/17 20:59 Ceftriaxone Sodium 2 gm/ Dextrose 110 ml @ 220 mls/hr Q24H IVPB 04/24/17 16:00 05/08/17 15:59 04/24/17 17:21 Dextrose (Dextrose 50%) STAT PRN IV Hypoglycemia 04/23/17 16:30 05/21/17 16:29 Divalproex Sodium (Depakote) 500 mg THREE TIMES A DAY ORAL 04/23/17 09:00 05/21/17 12:59 04/24/17 17:25 Heparin Sodium (Porcine) (Heparin 5000 units/ml) 5,000 units EVERY 12 HOURS SUBQ 04/22/17 21:00 05/21/17 20:59 04/24/17 21:02 Insulin Aspart (NovoLOG) BEFORE MEALS AND HS SUBQ 04/22/17 21:00 05/21/17 16:59 04/24/17 21:08 Lorazepam (Ativan) 0.5 mg Q6H PRN ORAL For Anxiety 04/22/17 21:00 04/29/17 20:59 04/24/17 12:59 Morphine Sulfate (Morphine Sulfate) 2 mg Q4H PRN IVP Moderate Pain (Pain Scale 4-6) 04/22/17 21:00 04/28/17 20:59 04/24/17 00:12 Olanzapine (ZyPREXA) 5 mg DAILY ORAL 04/23/17 09:00 05/22/17 08:59 04/24/17 09:24 Olanzapine (ZyPREXA) 5 mg QHS ORAL 04/22/17 21:00 05/22/17 20:59 04/24/17 21:01 Ondansetron HCl (Zofran) 4 mg Q6H PRN IVP Nausea & Vomiting 04/22/17 21:00 05/21/17 20:59 Phenazopyridine HCl (Pyridium) 100 mg DAILYPRN PRN ORAL dysuria 04/22/17 21:00 05/22/17 20:59 Polyethylene Glycol (Miralax) 17 gm DAILYPRN PRN ORAL Constipation 04/22/17 21:00 05/22/17 20:59 04/24/17 09:24 Temazepam (Restoril) 15 mg HSPRN PRN ORAL Insomnia 04/22/17 21:00 04/29/17 20:59 04/23/17 20:22 Trazodone HCl (Desyrel) 100 mg BEDTIME ORAL 04/22/17 21:00 05/21/17 20:59 04/24/17 21:01 EFREM BETANCUR Apr 24, 2017 21:39
--- NOTE | 2017-04-24 22:45 | Progress Note ---
DATE: 04/23/2017 Subjective: This is an 87-year-old female patient with sepsis, confused, and disorganized. Plan: I am going to continue treatment with medications to prevent any further decline in cognition. Chart reviewed and discussed with staff. Valentin Jefferson M.D. DR: MARY JOB#: [id number] CC:
[2017-04-25] VITALS: BP 130/75
[2017-04-25 04:00] VITALS: BP 124/64
[2017-04-25] MEDS: NovoLOG Insulin Flexpen SUBQ SCH ×3 (06:30→16:30)
[2017-04-25 08:00] VITALS: BP 124/69
[2017-04-25] MEDS: Depakote 500mg tab ORAL SCH ×3 (08:19→17:09)
[2017-04-25] MEDS: Heparin 5000 units/ml inj SUBQ SCH (08:20)
--- NOTE | 2017-04-25 14:39 | General Progress Note ---
Assessment/Plan Problem List: (1) Malnutrition ICD Codes: E46 - Unspecified protein-calorie malnutrition SNOMED: 1577836 (2) Fever ICD Codes: R50.9 - Fever, unspecified SNOMED: 235265847 (3) Schizophrenia ICD Codes: F20.9 - Schizophrenia, unspecified SNOMED: 16339581 Qualifiers: Qualified Codes: F20.9 - Schizophrenia, unspecified (4) Sepsis ICD Codes: A41.9 - Sepsis, unspecified organism SNOMED: 86001346 Qualifiers: Qualified Codes: A41.9 - Sepsis, unspecified organism (5) Diabetes mellitus ICD Codes: E11.9 - Type 2 diabetes mellitus without complications SNOMED: 29570978 (6) UTI (urinary tract infection) ICD Codes: N39.0 - Urinary tract infection, site not specified SNOMED: 77734867 Qualifiers: Qualified Codes: N30.00 - Acute cystitis without hematuria (7) Hypertension ICD Codes: I10 - Essential (primary) hypertension SNOMED: 56135130 Status: stable, progressing, tolerating diet Assessment/Plan ot pt diet abx bp bs control cbc bmp am dc w hh Subjective Constitutional: Reports: weakness Allergies: Coded Allergies: No Known Allergies (Unverified , 12/14/12) All Systems: reviewed and negative except above Subjective sleepy in bed calm Objective Last 24 Hour Vital Signs Date Time Temp Pulse Resp B/P (MAP) Pulse Ox O2 Delivery O2 Flow Rate FiO2 04/25/17 08:00 98.2 70 20 124/69 98 Room Air 04/25/17 04:00 97.3 70 19 124/64 95 Room Air 04/25/17 00:00 97.8 72 20 130/75 98 Room Air 04/24/17 20:00 97.7 68 20 128/76 97 Room Air 04/24/17 16:00 98.2 62 20 149/80 99 Room Air Height (Feet): 5 Height (Inches): 4.00 Weight (Pounds): 140 General Appearance: lethargic EENT: normal ENT inspection Neck: normal alignment Cardiovascular: normal peripheral pulses, normal rate, regular rhythm Respiratory/Chest: chest wall non-tender, lungs clear, normal breath sounds Abdomen: normal bowel sounds, non tender, soft Extremities: normal inspection Edema: no edema noted Arm (L), no edema noted Arm (R), no edema noted Leg (L), no edema noted Leg (R), no edema noted Pedal (L), no edema noted Pedal (R), no edema noted Generalized Neurologic: responsive, motor weakness Skin: normal pigmentation, warm/dry MARY TORRES Apr 25, 2017 14:39
[2017-04-25 16:00] VITALS: BP 130/70
--- NOTE | 2017-04-25 16:19 | Infectious Diseases Prog Note ---
Assessment/Plan Problems: (1) UTI (urinary tract infection) Assessment & Plan: with E coli, on ceftriaxone , will treat for 2 weeks, repeated blood culture to confirm clearance is negative. EOT 05/08/17 (2) Fever Assessment & Plan: due to sepsis and UTI, improving, continue antibiotics and tylenol (3) Sepsis Assessment & Plan: suspect due to uti , with E.COLI, on ceftriaxon for two weeks , repeated blood culture to confirm clearance is pending, EOT 05/08/17 Subjective ROS Limited/Unobtainable: Yes Allergies: Coded Allergies: No Known Allergies (Unverified , 12/14/12) Subjective she was comfortable, resting in bed, not in distress Objective Vital Signs Last 24 Hour Vital Signs Date Time Temp Pulse Resp B/P (MAP) Pulse Ox O2 Delivery O2 Flow Rate FiO2 04/25/17 08:00 98.2 70 20 124/69 98 Room Air 04/25/17 04:00 97.3 70 19 124/64 95 Room Air 04/25/17 00:00 97.8 72 20 130/75 98 Room Air 04/24/17 20:00 97.7 68 20 128/76 97 Room Air Height (Feet): 5 Height (Inches): 4.00 Weight (Pounds): 140 General Appearance: WD/WN, no acute distress HEENT: normocephalic, atraumatic, anicteric, mucous membranes moist Respiratory/Chest: chest wall non-tender, lungs clear, normal breath sounds, no respiratory distress Cardiovascular: normal peripheral pulses, normal rate, regular rhythm, no gallop/murmur Abdomen: normal bowel sounds, soft, non tender, no organomegaly, non distended , no mass Extremities: no cyanosis, no clubbing Skin: no rash, no lesions Current Medications Medications (Trade) Dose Ordered Sig/Milvia Route PRN Reason Start Time Stop Time Status Last Admin Dose Admin Acetaminophen (Tylenol) 650 mg Q4H PRN ORAL fever 04/22/17 21:00 05/21/17 20:59 Albuterol/ Ipratropium (DuoNeb 0.5-3(2.5)mg/3ml) 3 ml Q4H PRN HHN Shortness of Breath 04/22/17 21:00 04/26/17 20:59 Ceftriaxone Sodium 2 gm/ Dextrose 110 ml @ 220 mls/hr Q24H IVPB 04/24/17 16:00 05/08/17 15:59 04/24/17 17:21 Dextrose (Dextrose 50%) STAT PRN IV Hypoglycemia 04/23/17 16:30 05/21/17 16:29 Divalproex Sodium (Depakote) 500 mg THREE TIMES A DAY ORAL 04/23/17 09:00 05/21/17 12:59 04/25/17 13:28 Heparin Sodium (Porcine) (Heparin 5000 units/ml) 5,000 units EVERY 12 HOURS SUBQ 04/22/17 21:00 05/21/17 20:59 04/25/17 08:20 Insulin Aspart (NovoLOG) BEFORE MEALS AND HS SUBQ 04/22/17 21:00 05/21/17 16:59 04/24/17 21:08 Lorazepam (Ativan) 0.5 mg Q6H PRN ORAL For Anxiety 04/22/17 21:00 04/29/17 20:59 04/24/17 12:59 Morphine Sulfate (Morphine Sulfate) 2 mg Q4H PRN IVP Moderate Pain (Pain Scale 4-6) 04/22/17 21:00 04/28/17 20:59 04/24/17 00:12 Olanzapine (ZyPREXA) 5 mg DAILY ORAL 04/23/17 09:00 05/22/17 08:59 04/25/17 08:19 Olanzapine (ZyPREXA) 5 mg QHS ORAL 04/22/17 21:00 05/22/17 20:59 04/24/17 21:01 Ondansetron HCl (Zofran) 4 mg Q6H PRN IVP Nausea & Vomiting 04/22/17 21:00 05/21/17 20:59 Phenazopyridine HCl (Pyridium) 100 mg DAILYPRN PRN ORAL dysuria 04/22/17 21:00 05/22/17 20:59 Polyethylene Glycol (Miralax) 17 gm DAILYPRN PRN ORAL Constipation 04/22/17 21:00 05/22/17 20:59 04/24/17 09:24 Temazepam (Restoril) 15 mg HSPRN PRN ORAL Insomnia 04/22/17 21:00 04/29/17 20:59 04/23/17 20:22 Trazodone HCl (Desyrel) 100 mg BEDTIME ORAL 04/22/17 21:00 05/21/17 20:59 04/24/17 21:01 Mary Islas M.D. Apr 25, 2017 16:19
--- NOTE | 2017-04-25 16:26 | Pulmonology Progress Note ---
Assessment/Plan Problems: (1) Bacteremia (2) Sepsis (3) UTI (urinary tract infection) (4) Diabetes mellitus (5) Hypertension (6) Schizophrenia (7) Fall Assessment/Plan improving renal studies IV abx, check cultures [place] culture sliding scale diabetic diet dvt prophylaxis dc planning Subjective ROS Limited/Unobtainable: No Interval Events: comfortable Allergies: Coded Allergies: No Known Allergies (Unverified , 12/14/12) Objective Last 24 Hour Vital Signs Date Time Temp Pulse Resp B/P (MAP) Pulse Ox O2 Delivery O2 Flow Rate FiO2 04/25/17 08:00 98.2 70 20 124/69 98 Room Air 04/25/17 04:00 97.3 70 19 124/64 95 Room Air 04/25/17 00:00 97.8 72 20 130/75 98 Room Air 04/24/17 20:00 97.7 68 20 128/76 97 Room Air General Appearance: WD/WN HEENT: normocephalic, atraumatic Respiratory/Chest: chest wall non-tender, lungs clear Breasts: no masses Cardiovascular: normal peripheral pulses, regular rhythm Abdomen: normal bowel sounds, no organomegaly Genitourinary: normal external genitalia Extremities: no clubbing Skin: no rash Current Medications Medications (Trade) Dose Ordered Sig/Milvia Route PRN Reason Start Time Stop Time Status Last Admin Dose Admin Acetaminophen (Tylenol) 650 mg Q4H PRN ORAL fever 04/22/17 21:00 05/21/17 20:59 Albuterol/ Ipratropium (DuoNeb 0.5-3(2.5)mg/3ml) 3 ml Q4H PRN HHN Shortness of Breath 04/22/17 21:00 04/26/17 20:59 Ceftriaxone Sodium 2 gm/ Dextrose 110 ml @ 220 mls/hr Q24H IVPB 04/24/17 16:00 05/08/17 15:59 04/24/17 17:21 Dextrose (Dextrose 50%) STAT PRN IV Hypoglycemia 04/23/17 16:30 05/21/17 16:29 Divalproex Sodium (Depakote) 500 mg THREE TIMES A DAY ORAL 04/23/17 09:00 05/21/17 12:59 04/25/17 13:28 Heparin Sodium (Porcine) (Heparin 5000 units/ml) 5,000 units EVERY 12 HOURS SUBQ 04/22/17 21:00 05/21/17 20:59 04/25/17 08:20 Insulin Aspart (NovoLOG) BEFORE MEALS AND HS SUBQ 04/22/17 21:00 05/21/17 16:59 04/24/17 21:08 Lorazepam (Ativan) 0.5 mg Q6H PRN ORAL For Anxiety 04/22/17 21:00 04/29/17 20:59 04/24/17 12:59 Morphine Sulfate (Morphine Sulfate) 2 mg Q4H PRN IVP Moderate Pain (Pain Scale 4-6) 04/22/17 21:00 04/28/17 20:59 04/24/17 00:12 Olanzapine (ZyPREXA) 5 mg DAILY ORAL 04/23/17 09:00 05/22/17 08:59 04/25/17 08:19 Olanzapine (ZyPREXA) 5 mg QHS ORAL 04/22/17 21:00 05/22/17 20:59 04/24/17 21:01 Ondansetron HCl (Zofran) 4 mg Q6H PRN IVP Nausea & Vomiting 04/22/17 21:00 05/21/17 20:59 Phenazopyridine HCl (Pyridium) 100 mg DAILYPRN PRN ORAL dysuria 04/22/17 21:00 05/22/17 20:59 Polyethylene Glycol (Miralax) 17 gm DAILYPRN PRN ORAL Constipation 04/22/17 21:00 05/22/17 20:59 04/24/17 09:24 Temazepam (Restoril) 15 mg HSPRN PRN ORAL Insomnia 04/22/17 21:00 04/29/17 20:59 04/23/17 20:22 Trazodone HCl (Desyrel) 100 mg BEDTIME ORAL 04/22/17 21:00 05/21/17 20:59 04/24/17 21:01 EFREM BETANCUR Apr 25, 2017 16:26
[2017-04-25] MEDS: cefTRIAXone 2 GM in D5W 110 ML IVPB SCH (17:09)
[2017-04-25 20:00] VITALS: BP 131/80
[2017-04-25] MEDS ORDERED: Tubing IV Secondary IV ONE (20:04)
--- NOTE | 2017-04-26 08:00 | Progress Note ---
DATE: 04/25/2017 Subjective: This is an 87-year-old female with sepsis. She is currently at [facility] secondary to sepsis but she has altered mental status and confusion. I am going to continue treatment with medications to prevent any further decline in cognition. Diagnostic Impression: Rule out depression with psychotic features and . Plan: We will continue to follow throughout hospital course . Chart reviewed and discussed with staff. Also, seen and assessed at bedside. She will continue to be followed by Psychiatry throughout her hospital course . Valentin Jefferson M.D. DR: Dwaine JOB#: [id number] CC:
--- NOTE | 2017-04-26 11:05 | Discharge Summary ---
Discharge Summary Hospital Course Date of Admission Apr 21, 2017 at 07:34 Date of Discharge Apr 25, 2017 at 20:05 Admitting Diagnosis Sepsis HPI Sagar Feldman is a 87 year old female who was admitted on Apr 21, 2017 at 07:34 for Sepsis Procedures [id number] Discharge Discharge Disposition Patient was discharged to [facility] Discharge Diagnoses: Kamryn Winston NP Apr 26, 2017 11:05
--- NOTE | 2017-04-26 20:30 | Discharge Summary 2 SIG ---
DATE OF ADMISSION: 04/21/2017 DATE OF DISCHARGE: 04/25/2017 CONSULTANTS: 1. Valentin Jefferson M.D. 2. Mary Islas M.D. 3. Spencer Leonardo M.D. Brief Hospital Course: The patient is a 87-year-old female from an assisted living presented due to weakness, confusion and fall. On evaluation at ED, she had a laceration to the scalp and abrasion to left elbow. CT of the head showed no acute intracranial abnormalities with global cortical atrophy with periventricular chronic ischemic changes. She was noted to be febrile and blood work showed elevated lactic acid with WBC elevated to 20. Creatinine was 1.3 and BUN was 24. Urine with infection. She was admitted to telemetry for sepsis, UTI, and fall/syncope. She was started on IV cefepime and vancomycin. She was followed by Infectious Diseases specialist. Vancomycin was discontinued. Cefepime was switched to ceftriaxone. Urine culture showed growth of E. coli and blood culture with findings of E. coli. She underwent psychiatric evaluation and was given Zyprexa and Depakote. She eventually defervesced and leukocytosis improved. Repeat urine culture did not show any growth. Repeat blood culture still pending. She was eventually discharged to [facility]. FINAL DIAGNOSES: 1. Sepsis suspect due to urinary tract infection. 2. Urinary tract infection with Escherichia coli. 3. Diabetes mellitus. 4. Hypertension. 5. Schizophrenia. 6. Malnutrition. Discharge Disposition: The patient was discharged to [facility]. DISCHARGE MEDICATIONS: Refer to medication list. Ap Dalton D.O. I have been assigned to dictate discharge summary on this account and I was not involved in the patient's management. Kamryn Winston N.P. DR: KENNETH JOB#: [id number] CC:
== END 2017-04-25 20:05 | DRG 720 ==
LOC: EDBD 06:45 → EMR 07:22 → 2E 07:34 → EDBEDREQ 13:49 → 4E 04-22 20:20
DX: A41.9 Sepsis, unspecified organism (principal); E46 Unspecified protein-calorie malnutrition; N39.0 Urinary tract infection, site not specified; E11.9 Type 2 diabetes mellitus without complications; I10 Essential (primary) hypertension; B96.20 Unspecified Escherichia coli [E. coli] as the cause of diseases classified elsewhere; F20.9 Schizophrenia, unspecified; S01.01XA Laceration without foreign body of scalp, initial encounter; W19.XXXA Unspecified fall, initial encounter; E78.00 Pure hypercholesterolemia, unspecified; Z85.41 Personal history of malignant neoplasm of cervix uteri; S50.312A Abrasion of left elbow, initial encounter
CPT/HCPCS: 36415; 70450; 71010; 76775; 80048; 80053; 81001; 81003; 82550; 82962; 83605; 83735; 84100; 84133; 84300; 84484; 84550; 85007; 85025; 85610; 85730; 87040; 87081; 87086; 87181; 89050; 90471; 90630; 90715; 93005; 97803; 99285; J1815

== ENCOUNTER 2017-08-05 16:34 | Inpatient (IN) | payer MEDICAID, MEDICARE ==
[~2017-08-05] VITALS: Ht 152.4 cm; Wt 52.2 kg
[~2017-08-05 16:34] MED LIST changes: +ATIVAN0.5 MG ORAL; +CEFEPIME-D2 GM/50 ML IVPB; +CEFTRIAXON2 GM/50 ML IV; +DEPAKOTE250 MG PO; +DUONEB 0.5-3(2.53 ML HHN; +IBUPROFEN600 MG ORAL; +MIRALAX17 G2 ORAL; +MORPHINE 22 MG/1 ML IV; +NOVOLOG100 UNIT/3 SUBQ; +PHENAZOPYRIDIN100 MG ORAL; +RESTORIL15 MG ORAL; +TRIHEXYPHENIDYL2 MG ORAL; +TYLENOL650 MG/20. ORAL; +ZOFRAN 4 MG4 MG/2 ML IV; +ZYPREXA5 MG ORAL
[2017-08-05 16:40] VITALS: BP 103/57
[2017-08-05] MEDS ORDERED: Sodium Chloride 500ML 500 ML IV ONE (16:50)
--- NOTE | 2017-08-05 17:34 | Diagnostic Imaging Report ---
Indication: Pain status post fall Technique: Continuous helical CT scanning of the head was performed utilizing automated exposure control without intravenous contrast material. Axial and coronal reconstructions were obtained. Comparison: 04/21/2017 CT dose: Total DLP 1330.34 mGycm; CTDI vol 70.38 mGy Findings: There is no acute intracranial hemorrhage, mass effect or cortical edema. The ventricles, cisterns and sulci are prominent consistent with atrophy; size and configuration of the ventricular system is stable compared to the prior exam. Periventricular hypoattenuation is seen, a nonspecific finding. Visualized mastoid air cells and paranasal sinuses are unremarkable. No focal lesions of the bony calvarium or soft tissues of the scalp are seen. Impression: No evidence of acute intracranial hemorrhage, mass effect or cortical edema. Atrophy and nonspecific periventricular hypoattenuation suggestive of chronic ischemic microvascular changes. The CT scanner at [facility] is accredited by the [employer] and the scans are performed using protocols designed to limit radiation exposure to as low as reasonably achievable to attain images of sufficient resolution adequate for diagnostic evaluation.
[2017-08-05] MEDS ORDERED: BISACODYL5 MG ORAL (17:41)
[2017-08-05] MEDS ORDERED: NEXIUM40 MG ORAL (17:41)
[2017-08-05] MEDS ORDERED: MULTIVITAMINS1 EAC2 ORAL (17:41)
[2017-08-05] MEDS ORDERED: NORCO 5-325 TA1 EACH ORAL (17:41)
[2017-08-05] MEDS ORDERED: METFORMIN HCL500 M1 ORAL (17:41)
[2017-08-05] MEDS ORDERED: MILK OF MA400 MG/51 ORAL (17:41)
[2017-08-05] MEDS ORDERED: JANUVIA25 MG ORAL (17:41)
[2017-08-05] MEDS ORDERED: ATORVASTATIN CA20 MG ORAL (17:41)
[2017-08-05 17:56] LABS: ANION GAP 10 mmol/L (5-15); BLOOD UREA NITROGEN 16 mg/dL (7-18); CALCIUM 8.9 MG/DL (8.5-10.1); CARBON DIOXIDE 26 MMOL/L (21-32); CHLORIDE 100 MMOL/L (98-107); CREATININE 1.5 MG/DL (0.55-1.30); POTASSIUM 3.8 MMOL/L (3.5-5.1); SODIUM 136 MMOL/L (136-145)
[2017-08-05 18:01] LABS: BASOPHILS % (AUTO) 0.5 % (0.0-2.0); HEMATOCRIT 35.9 % (37.0-47.0); HEMOGLOBIN 11.4 G/DL (12.0-16.0); MEAN CORPUSCULAR VOLUME 94 FL (80-99); MONOCYTES % (AUTO) 8.3 % (1.0-10.0); NEUTROPHILS % (AUTO) 76.3 % (45.0-75.0); PLATELET COUNT 191 K/UL (150-450); RED BLOOD COUNT 3.81 M/UL (4.20-5.40); RED CELL DISTRIBUTION WIDTH 11.3 % (11.6-14.8); WHITE BLOOD COUNT 14.7 K/UL (4.8-10.8)
[2017-08-05] MEDS ORDERED: JANUVIA100 MG ORAL (18:11)
[2017-08-05] MEDS ORDERED: LORAZEPAM2 MG ORAL (18:11)
[2017-08-05 18:12] LABS: ALANINE AMINOTRANSFERASE 14 U/L (12-78); ALBUMIN 3.2 G/DL (3.4-5.0); ALBUMIN/GLOBULIN RATIO 0.8 (1.0-2.7); ALKALINE PHOSPHATASE 54 U/L (46-116); ASPARTATE AMINO TRANSFERASE 21 U/L (15-37); BILIRUBIN,TOTAL 0.5 MG/DL (0.2-1.0); CKMB 1.9 NG/ML (0.0-3.6); CREATINE KINASE 588 U/L (26-308)
--- NOTE | 2017-08-05 18:30 | Diagnostic Imaging Report ---
Indication: Pain status post fall Technique: XRAY Chest 1v Comparison: 04/21/2017 Findings: Heart size and mediastinal contours are within normal limits given technique. There is no focal consolidation, pneumothorax or pleural effusion. Osseous structures demonstrate no acute abnormality. Impression: No radiographic evidence of acute cardiopulmonary disease.
--- NOTE | 2017-08-05 18:56 | Emergency Room Report ---
History of Present Illness General Chief Complaint: Multiple Trauma/Fall Source: EMS Present Illness HPI 87-year-old female presents to ED for evaluation. Patient brought in by EMS. Patient at detention and had multiple falls x1 day. unwitnessed. Found on the ground. Patient is nonverbal at baseline. However showing no signs of distress. Unable to provide any additional history at this time. No other aggravating relieving factors. Denies any other associated symptoms Allergies: Coded Allergies: No Known Allergies (Unverified , 12/14/12) Patient History Past Medical History: HTN Past Surgical History: none Pertinent Family History: none Social History: Denies: smoking, alcohol use, drug use Now: No Immunizations: UTD Reviewed Nursing Documentation: PMH: Agreed, PSxH: Agreed Nursing Documentation-PMH Hx Cardiac Problems: Yes - Hyperlipidemeia Hx Hypertension: Yes - Hyperlipidemia Hx Diabetes: Yes Hx Cancer: Yes - Cervix Hx Gastrointestinal Problems: Yes Hx Neurological Problems: No Review of Systems All Other Systems: negative except mentioned in HPI Physical Exam Vital Signs Date Time Temp Pulse Resp B/P (MAP) Pulse Ox O2 Delivery O2 Flow Rate FiO2 08/05/17 16:30 99.5 107 20 106/61 94 Room Air Sp02 EP Interpretation: reviewed, normal General Appearance: no apparent distress, non-toxic, other - nonverbal Head: normocephalic Eyes: bilateral eye normal inspection, bilateral eye PERRL ENT: normal ENT inspection Neck: normal inspection Respiratory: chest non-tender, lungs clear, normal breath sounds, speaking full sentences Cardiovascular #1: regular rate, rhythm, no edema Gastrointestinal: normal bowel sounds, non tender, soft, non-distended, no guarding, no rebound Rectal: deferred Genitourinary: no CVA tenderness Musculoskeletal: normal inspection Neurologic: other - nonverbal Psychiatric: other - nonverbal Skin: normal inspection Lymphatic: normal inspection Medical Decision Making Diagnostic Impression: Primary Impression: Unsteady gait Additional Impressions: Frequent falls Renal insufficiency ER Course Hospital Course 87-year-old female presents to ED status post frequent falls at detention Differential diagnoses include: DC/unstable angina, arrythmia, dehydration, CVA/ TIA Clinical course Patient placed on stretcher. on property assessment monitor. After initial history and physical I ordered labs, EKG, chest x-ray, IVFs, CT Brain, CT pelvis labs reviewed- no leukocytosis, hemoglobin/hematocrit ok, Cr 1.5, troponins negative EKG- NSR, no acute ischemic changes interpreted by me Chest x-ray- no acute process CT brain-unremarkable CT Pelvis unremarkable Case discussed with Dr. Leonardo and he agreed to accept the patient to his service for further care and support I. I feel this is a highly complex case requiring extensive working including EKG/Rhythm strip, Xray/CT/US, Blood/urine lab work, repeat exams while in ED, and administration of strong opiates/narcotics for pain control, admission to hospital or close patient follow up. Diagnosis - unsteady gait, frequent falls, renal insufficiency admitted to floor in serious condition Labs Test 08/05/17 16:50 08/05/17 17:26 Sodium Level 136 MMOL/L (136-145) Potassium Level 3.8 MMOL/L (3.5-5.1) Chloride Level 100 MMOL/L (98-107) Carbon Dioxide Level 26 MMOL/L (21-32) Anion Gap 10 mmol/L (5-15) Blood Urea Nitrogen 16 mg/dL (7-18) Creatinine 1.5 MG/DL (0.55-1.30) Estimat Glomerular Filtration Rate mL/min (>60) Glucose Level 114 MG/DL (74-106) Calcium Level 8.9 MG/DL (8.5-10.1) Total Bilirubin 0.5 MG/DL (0.2-1.0) Aspartate Amino Transf (AST/SGOT) 21 U/L (15-37) Alanine Aminotransferase (ALT/SGPT) 14 U/L (12-78) Alkaline Phosphatase 54 U/L (46-116) Total Creatine Kinase 588 U/L (26-308) Creatine Kinase MB 1.9 NG/ML (0.0-3.6) Creatine Kinase MB Relative Index 0.3 Troponin I 0.000 ng/mL (0.000-0.056) Total Protein 7.4 G/DL (6.4-8.2) Albumin 3.2 G/DL (3.4-5.0) Globulin 4.2 g/dL Albumin/Globulin Ratio 0.8 (1.0-2.7) White Blood Count 14.7 K/UL (4.8-10.8) Red Blood Count 3.81 M/UL (4.20-5.40) Hemoglobin 11.4 G/DL (12.0-16.0) Hematocrit 35.9 % (37.0-47.0) Mean Corpuscular Volume 94 FL (80-99) Mean Corpuscular Hemoglobin 29.8 PG (27.0-31.0) Mean Corpuscular Hemoglobin Concent 31.7 G/DL (32.0-36.0) Red Cell Distribution Width 11.3 % (11.6-14.8) Platelet Count 191 K/UL (150-450) Mean Platelet Volume 5.7 FL (6.5-10.1) Neutrophils (%) (Auto) 76.3 % (45.0-75.0) Lymphocytes (%) (Auto) 15.0 % (20.0-45.0) Monocytes (%) (Auto) 8.3 % (1.0-10.0) Eosinophils (%) (Auto) 0.0 % (0.0-3.0) Basophils (%) (Auto) 0.5 % (0.0-2.0) EKG Diagnostic Results Rate: normal Rhythm: NSR ST Segments: no acute changes ASA given to the pt in ED: No Rhythm Strip Diag. Results EP Interpretation: yes Rhythm: NSR, no PVC's, no ectopy Chest X-Ray Diagnostic Results Chest X-Ray Diagnostic Results : Chest X-Ray Ordered: Yes # of Views/Limited/Complete: 1 View Indication: Chest Pain EP Interpretation: Yes Interpretation: no consolidation, no effusion, no pneumothorax, no acute cardiopulmonary disease Impression: No acute disease Electronically Signed by: Electronically signed by Arvin Denny MD CT/MRI/US Diagnostic Results CT/MRI/US Diagnostic Results #1: Imaging Test Ordered: CT head Impression no acute process CT/MRI/US Diagnostic Results #2: Imaging Test Ordered: CT Pelvis Impression no acute process Last Vital Signs Date Time Temp Pulse Resp B/P (MAP) Pulse Ox O2 Delivery O2 Flow Rate FiO2 08/05/17 16:40 98.3 86 22 103/57 98 Room Air Status: improved Disposition: ADMITTED INPATIENT Condition: Serious Referrals: MARY TORRES (PCP) ARVIN DENNY M.D. Aug 05, 2017 18:56
--- NOTE | 2017-08-05 18:59 | Neurology Progress Note ---
Objective Physical Exam Last Vital Signs Date Time Temp Pulse Resp B/P (MAP) Pulse Ox O2 Delivery O2 Flow Rate FiO2 08/05/17 16:40 98.3 86 22 103/57 98 Room Air Laboratory Tests Test 08/05/17 16:50 08/05/17 17:26 Sodium Level 136 MMOL/L (136-145) Potassium Level 3.8 MMOL/L (3.5-5.1) Chloride Level 100 MMOL/L (98-107) Carbon Dioxide Level 26 MMOL/L (21-32) Anion Gap 10 mmol/L (5-15) Blood Urea Nitrogen 16 mg/dL (7-18) Creatinine 1.5 MG/DL (0.55-1.30) H Estimat Glomerular Filtration Rate mL/min (>60) Glucose Level 114 MG/DL (74-106) H Calcium Level 8.9 MG/DL (8.5-10.1) Total Bilirubin 0.5 MG/DL (0.2-1.0) Aspartate Amino Transf (AST/SGOT) 21 U/L (15-37) Alanine Aminotransferase (ALT/SGPT) 14 U/L (12-78) Alkaline Phosphatase 54 U/L (46-116) Total Creatine Kinase 588 U/L (26-308) H Creatine Kinase MB 1.9 NG/ML (0.0-3.6) Creatine Kinase MB Relative Index 0.3 Troponin I 0.000 ng/mL (0.000-0.056) Total Protein 7.4 G/DL (6.4-8.2) Albumin 3.2 G/DL (3.4-5.0) L Globulin 4.2 g/dL Albumin/Globulin Ratio 0.8 (1.0-2.7) L White Blood Count 14.7 K/UL (4.8-10.8) H Red Blood Count 3.81 M/UL (4.20-5.40) L Hemoglobin 11.4 G/DL (12.0-16.0) L Hematocrit 35.9 % (37.0-47.0) L Mean Corpuscular Volume 94 FL (80-99) Mean Corpuscular Hemoglobin 29.8 PG (27.0-31.0) Mean Corpuscular Hemoglobin Concent 31.7 G/DL (32.0-36.0) L Red Cell Distribution Width 11.3 % (11.6-14.8) L Platelet Count 191 K/UL (150-450) Mean Platelet Volume 5.7 FL (6.5-10.1) L Neutrophils (%) (Auto) 76.3 % (45.0-75.0) H Lymphocytes (%) (Auto) 15.0 % (20.0-45.0) L Monocytes (%) (Auto) 8.3 % (1.0-10.0) Eosinophils (%) (Auto) 0.0 % (0.0-3.0) Basophils (%) (Auto) 0.5 % (0.0-2.0) Impression/Recommendations Recommendations #[id number] SIN FISHMAN Aug 05, 2017 18:59
[2017-08-05] MEDS ORDERED: Zolpidem 5mg tab ORAL PRN (19:00)
[2017-08-05] MEDS ORDERED: Miralax 17gm pkt ORAL PRN (19:00)
[2017-08-05] MEDS ORDERED: Mylanta II UD 30ml ORAL PRN (19:00)
[2017-08-05] MEDS ORDERED: Albuterol/Ipratropium 3ml neb HHN PRN (19:00)
[2017-08-05] MEDS ORDERED: Morphine Sulfate 2mg/ml Inj IVP PRN (19:00)
[2017-08-05 19:11] VITALS: BP 123/56
--- NOTE | 2017-08-05 19:24 | Diagnostic Imaging Report ---
Indication: Fall Technique: CT pelvis was performed utilizing automated exposure control without intravenous contrast material. Axial, sagittal and coronal images were generated. CT dose: Total DLP 284.44 mGycm; CTDI vol 10.32 mGy Comparison: CT of the abdomen and pelvis 12/14/2012 Findings: No acute fracture is identified. Hip joints are preserved. Sacroiliac joints and symphysis pubis within normal limits. There is a well-circumscribed lesion of the left intertrochanteric proximal femur which is unchanged in size and appearance compared to the prior exam of 12/14/2012. 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 Uterus is absent and there multiple surgical clips in the pelvis. The appendix is normal. The visualized portions of the bowel are unremarkable. Bladder is unremarkable in appearance. Impression: No no acute fracture. Additional findings as above. This corresponds with the statrad preliminary report. The CT scanner at [facility] is accredited by the [employer] and the scans are performed using protocols designed to limit radiation exposure to as low as reasonably achievable to attain images of sufficient resolution adequate for diagnostic evaluation.
[2017-08-05 20:14] VITALS: BP 137/96
[2017-08-05] MEDS ORDERED: OLANZapine 2.5mg tab ORAL SCH (21:00)
[2017-08-05] MEDS: TraZODone 100mg tab ORAL SCH (22:08)
[2017-08-05] MEDS: Heparin 5000 units/ml inj SUBQ SCH (22:09)
[2017-08-05] MEDS: NovoLOG Insulin Flexpen SUBQ SCH (22:09)
[2017-08-06] VITALS (7 sets, daily range): BP systolic 99–123; BP diastolic 52–70
[2017-08-06] MEDS: NovoLOG Insulin Flexpen SUBQ SCH ×4 (05:54→21:23)
[2017-08-06 07:19] LABS: BASOPHILS % (AUTO) 0.3 % (0.0-2.0); EOSINOPHILS % (AUTO) 0.1 % (0.0-3.0); HEMATOCRIT 31.3 % (37.0-47.0); HEMOGLOBIN 10.5 G/DL (12.0-16.0); LYMPHOCYTES % (AUTO) 17.7 % (20.0-45.0); MEAN CORPUSCULAR VOLUME 94 FL (80-99); MONOCYTES % (AUTO) 7.3 % (1.0-10.0); NEUTROPHILS % (AUTO) 74.6 % (45.0-75.0); PLATELET COUNT 190 K/UL (150-450); RED BLOOD COUNT 3.32 M/UL (4.20-5.40); RED CELL DISTRIBUTION WIDTH 11.4 % (11.6-14.8)
[2017-08-06 08:16] LABS: ALANINE AMINOTRANSFERASE 21 U/L (12-78); ALBUMIN 2.9 G/DL (3.4-5.0); ALBUMIN/GLOBULIN RATIO 0.7 (1.0-2.7); ALKALINE PHOSPHATASE 55 U/L (46-116); ANION GAP 10 mmol/L (5-15); ASPARTATE AMINO TRANSFERASE 26 U/L (15-37); BILIRUBIN,TOTAL 0.3 MG/DL (0.2-1.0); BLOOD UREA NITROGEN 13 mg/dL (7-18); CALCIUM 8.5 MG/DL (8.5-10.1); CARBON DIOXIDE 25 MMOL/L (21-32); CHLORIDE 103 MMOL/L (98-107); CHOLESTEROL 113 MG/DL (< 200); CREATININE 1.4 MG/DL (0.55-1.30); HDL CHOLESTEROL 54 MG/DL (40-60); POTASSIUM 3.4 MMOL/L (3.5-5.1); SODIUM 138 MMOL/L (136-145); TRIGLYCERIDES 83 MG/DL (30-150)
[2017-08-06] MEDS: Depakote ER 250mg tab ORAL SCH ×2 (08:48→16:37)
[2017-08-06] MEDS: Heparin 5000 units/ml inj SUBQ SCH ×2 (08:51→21:22)
[2017-08-06] MEDS: sitaGLIPtin 25mg tab ORAL SCH (11:25)
[2017-08-06] MEDS ORDERED: LORazepam 1mg tab ORAL PRN (11:45)
[2017-08-06] MEDS ORDERED: Promethazine/Codeine 5ml UD ORAL PRN (11:45)
[2017-08-06] MEDS ORDERED: Pneumococcal Vaccine 25mcg/0.5ml IM ONE (12:00)
[2017-08-06] MEDS: Norco 5mg/325mg tab ORAL PRN (16:38)
--- NOTE | 2017-08-06 17:03 | History and Physical ---
History of Present Illness General Date patient seen: Aug 06, 2017 Reason for Hospitalization: Multiple Trauma/Fall Present Illness HPI 87-year-old female presents to ED for evaluation pf multiple falls x1 day. unwitnessed. Found on the ground. Patient is nonverbal at baseline. However showing no signs of distress. Unable to provide any additional history at this time. No other aggravating relieving factors. Denies any other associated symptoms. she was found to have azotemia and possibly UTI and admitted for further evaluation. Allergies: Coded Allergies: No Known Allergies (Unverified , 12/14/12) Medication History Scheduled Atorvastatin Calcium* (Atorvastatin Calcium*), 10 MG ORAL BEDTIME, (Reported) Esomeprazole Magnesium (Nexium), 40 MG ORAL DAILY, (Reported) Magnesium Hydroxide* (Milk Of Magnesia*), 30 ML ORAL DAILY, (Reported) Metformin Hcl* (Metformin Hcl*), 500 MG ORAL TWICE A DAY, (Reported) Multivitamins* (Multivitamins*), 1 TAB ORAL DAILY, (Reported) Olanzapine* (Zyprexa*), 5 MG ORAL QHS, (Reported) Sitagliptin (Januvia), 100 MG ORAL DAILY, (Reported) Trazodone Hcl* (Desyrel*), 100 MG ORAL BEDTIME, (Reported) Scheduled PRN Acetaminophen (Acetaminophen), 650 MG ORAL Q6H PRN for Prn Headache/Temp > 101, (Reported) Bisacodyl* (Dulcolax*), 5 MG ORAL DAILY PRN for Constipation, (Reported) Hydrocodone Bit/Acetaminophen 5-325* ([place] 5-325*), 1 TAB ORAL Q4H PRN for For Pain, (Reported) Lorazepam* (Lorazepam*), 2 MG ORAL DAILY PRN for For Anxiety, (Reported) Discontinued Medications Ceftriaxone Na/Dextrose,Iso (Ceftriaxone 2 Gm Piggyback), 2 GM IV DAILY, ( Reported) Discontinued Reason: Pt stopped taking med Divalproex Sodium* (Depakote*), 500 MG PO TID, (Reported) Discontinued Reason: Pt stopped taking med Insulin Aspart* (Novolog*), 0 SUBQ AC+HS, (Reported) Discontinued Reason: Pt stopped taking med Ipratropium/Albuterol Sulfate (DuoNeb 0.5-3(2.5)mg/3ml), 3 ML HHN Q4HR PRN for For Cough, (Reported) Discontinued Reason: Pt stopped taking med Lorazepam* (Ativan*), 2 MG ORAL DAILY PRN for For Anxiety, (Reported) Discontinued Reason: Prescription changed Morphine Sulfate* (Morphine Sulfate*), 2 MG IV Q4HR PRN for For Pain, (Reported) Discontinued Reason: Pt stopped taking med Olanzapine* (Zyprexa*), 10 MG ORAL QHS, (Reported) Discontinued Reason: Pt stopped taking med Ondansetron* (Zofran*), 4 MG IV Q6H PRN for Nausea & Vomiting, (Reported) Discontinued Reason: Pt stopped taking med Phenazopyridine Hcl* (Pyridium*), 100 MG ORAL DAILY PRN for urinary discomfort, (Reported) Discontinued Reason: Pt stopped taking med Polyethylene Glycol 3350* (Miralax*), 17 GM ORAL DAILY PRN for Constipation, ( Reported) Discontinued Reason: Pt stopped taking med Sitagliptin* (Januvia*), 100 MG ORAL DAILY, (Reported) Discontinued Reason: Prescription changed Temazepam* (Restoril*), 15 MG ORAL BEDTIME PRN for Insomnia, (Reported) Discontinued Reason: Pt stopped taking med Patient History Healthcare decision maker Resuscitation status Advanced Directive on File Past Medical/Surgical History Past Medical/Surgical History: (1) Diabetes mellitus (2) Malnutrition (3) Renal insufficiency (4) Frequent falls (5) Hypertension Review of Systems Constitutional: Reports: malaise All Other Systems: negative except mentioned in HPI Physical Exam Lines, tubes and drains: peripheral, PICC HEENT: normocephalic, atraumatic Neck: non-tender, normal alignment Respiratory/Chest: chest wall non-tender, respiratory distress Breasts: no masses Cardiovascular/Chest: normal peripheral pulses Abdomen: non tender, hyperactive bowel sounds Genitourinary/Rectal: normal genital exam Last 24 Hour Vital Signs Date Time Temp Pulse Resp B/P (MAP) Pulse Ox O2 Delivery O2 Flow Rate FiO2 08/06/17 16:07 98.8 72 20 123/70 97 08/06/17 11:31 99.3 76 20 104/52 98 08/06/17 08:00 98.0 77 18 105/60 97 Room Air 08/06/17 06:39 78 18 Room Air 21 08/06/17 05:40 97.7 80 20 99/56 97 Room Air 08/06/17 04:00 Room Air 08/06/17 04:00 97.7 78 20 99/56 96 Room Air 08/06/17 00:00 Room Air 08/05/17 20:14 99.1 97 20 137/96 98 Room Air 08/05/17 20:08 98.3 76 19 123/56 98 Room Air 08/05/17 19:11 98.3 76 19 123/56 98 Room Air Intake and Output 08/05/17 08/06/17 19:00 07:00 Intake Total 745 ml Balance 745 ml Intake Oral 120 ml IV Total 625 ml # Voids 3 Laboratory Tests Test 08/05/17 17:26 08/06/17 04:00 08/06/17 06:10 White Blood Count 14.7 K/UL (4.8-10.8) H 10.0 K/UL (4.8-10.8) Red Blood Count 3.81 M/UL (4.20-5.40) L 3.32 M/UL (4.20-5.40) L Hemoglobin 11.4 G/DL (12.0-16.0) L 10.5 G/DL (12.0-16.0) L Hematocrit 35.9 % (37.0-47.0) L 31.3 % (37.0-47.0) L Mean Corpuscular Volume 94 FL (80-99) 94 FL (80-99) Mean Corpuscular Hemoglobin 29.8 PG (27.0-31.0) 31.8 PG (27.0-31.0) H Mean Corpuscular Hemoglobin Concent 31.7 G/DL (32.0-36.0) L 33.7 G/DL (32.0-36.0) Red Cell Distribution Width 11.3 % (11.6-14.8) L 11.4 % (11.6-14.8) L Platelet Count 191 K/UL (150-450) 190 K/UL (150-450) Mean Platelet Volume 5.7 FL (6.5-10.1) L 6.3 FL (6.5-10.1) L Neutrophils (%) (Auto) 76.3 % (45.0-75.0) H 74.6 % (45.0-75.0) Lymphocytes (%) (Auto) 15.0 % (20.0-45.0) L 17.7 % (20.0-45.0) L Monocytes (%) (Auto) 8.3 % (1.0-10.0) 7.3 % (1.0-10.0) Eosinophils (%) (Auto) 0.0 % (0.0-3.0) 0.1 % (0.0-3.0) Basophils (%) (Auto) 0.5 % (0.0-2.0) 0.3 % (0.0-2.0) Sodium Level 138 MMOL/L (136-145) Potassium Level 3.4 MMOL/L (3.5-5.1) L Chloride Level 103 MMOL/L (98-107) Carbon Dioxide Level 25 MMOL/L (21-32) Anion Gap 10 mmol/L (5-15) Blood Urea Nitrogen 13 mg/dL (7-18) Creatinine 1.4 MG/DL (0.55-1.30) H Estimat Glomerular Filtration Rate mL/min (>60) Glucose Level 112 MG/DL (74-106) H Hemoglobin A1c 5.5 % (4.3-6.0) Calcium Level 8.5 MG/DL (8.5-10.1) Total Bilirubin 0.3 MG/DL (0.2-1.0) Aspartate Amino Transf (AST/SGOT) 26 U/L (15-37) Alanine Aminotransferase (ALT/SGPT) 21 U/L (12-78) Alkaline Phosphatase 55 U/L (46-116) Total Protein 7.1 G/DL (6.4-8.2) Albumin 2.9 G/DL (3.4-5.0) L Globulin 4.2 g/dL Albumin/Globulin Ratio 0.7 (1.0-2.7) L Triglycerides Level 83 MG/DL (30-150) Cholesterol Level 113 MG/DL (< 200) LDL Cholesterol 51 mg/dL (<100) HDL Cholesterol 54 MG/DL (40-60) Cholesterol/HDL Ratio 2.1 (3.3-4.4) L Thyroid Stimulating Hormone (TSH) 0.416 uiU/mL (0.358-3.740) Height (Feet): 5 Height (Inches): 0.00 Weight (Pounds): 115 Medications Current Medications Medications (Trade) Dose Ordered Sig/Milvia Route PRN Reason Start Time Stop Time Status Last Admin Dose Admin Acetaminophen (Tylenol) 650 mg Q4H PRN ORAL fever 08/05/17 19:00 09/04/17 18:59 Acetaminophen/ Hydrocodone Bitart ([place] 5/325) 1 tab Q4H PRN ORAL Moderate Pain (Pain Scale 4-6) 08/06/17 11:45 08/13/17 11:44 08/06/17 16:38 Al Hydroxide/Mg Hydroxide (Mylanta II) 30 ml Q6H PRN ORAL dyspepsia 08/05/17 19:00 09/04/17 18:59 Albuterol/ Ipratropium (Albuterol/ Ipratropium) 3 ml Q6HRT PRN HHN dyspnea 08/05/17 19:00 08/10/17 18:59 Clonidine HCl (Catapres Tab) 0.1 mg Q4H PRN ORAL For High Blood Pressure 08/05/17 19:00 09/04/17 18:59 Dextrose (Dextrose 50%) STAT PRN IV Hypoglycemia 08/05/17 19:00 09/04/17 18:59 Divalproex Sodium (Depakote ER) 250 mg BID ORAL 08/06/17 09:00 09/05/17 08:59 08/06/17 16:37 Donepezil HCl (Aricept) 5 mg QHS ORAL 08/06/17 21:00 09/05/17 20:59 Heparin Sodium (Porcine) (Heparin 5000 units/ml) 5,000 units EVERY 12 HOURS SUBQ 08/05/17 21:00 09/04/17 20:59 08/06/17 08:51 Insulin Aspart (NovoLOG) BEFORE MEALS AND HS SUBQ 08/05/17 21:00 09/04/17 20:59 08/06/17 16:40 Lorazepam (Ativan) 2 mg QHS PRN ORAL For Anxiety 08/06/17 11:45 08/13/17 11:44 Olanzapine (ZyPREXA) 5 mg QHS ORAL 08/06/17 21:00 09/05/17 20:59 Ondansetron HCl (Zofran) 4 mg Q6H PRN IVP Nausea & Vomiting 08/05/17 19:00 09/04/17 18:59 Polyethylene Glycol (Miralax) 17 gm HSPRN PRN ORAL Constipation 08/05/17 19:00 09/04/17 18:59 Promethazine HCl/ Codeine (Phenergan with Codeine) 5 ml Q6HR PRN ORAL For Cough 08/06/17 11:45 09/05/17 11:44 Sitagliptin Phosphate (Januvia) 25 mg ACBREAKFAST ORAL 08/06/17 11:15 09/05/17 11:14 08/06/17 11:25 Trazodone HCl (Desyrel) 100 mg BEDTIME ORAL 08/05/17 21:00 09/04/17 20:59 08/05/17 22:08 Zolpidem Tartrate (Ambien) 5 mg HSPRN PRN ORAL Insomnia 08/05/17 19:00 08/12/17 18:59 Assessment/Plan Problem List: (1) UTI (urinary tract infection) ICD Codes: N39.0 - Urinary tract infection, site not specified SNOMED: 08600183 (2) Diabetes mellitus ICD Codes: E11.9 - Type 2 diabetes mellitus without complications SNOMED: 67531169 (3) Malnutrition ICD Codes: E46 - Unspecified protein-calorie malnutrition SNOMED: 2746999 (4) Hypertension ICD Codes: I10 - Essential (primary) hypertension SNOMED: 58238667 Assessment/Plan Iv Fluids renal w/u f/u urine c/s pt/ot EFREM BETANCUR Aug 06, 2017 17:03
--- NOTE | 2017-08-06 17:15 | Consultation ---
DATE OF CONSULTATION: 08/05/2017 NEUROLOGICAL CONSULTATION REQUESTING PHYSICIAN: Ap Dalton D.O. HISTORY OF PRESENT ILLNESS: This 87-year-old female, seen in neurological consultation to evaluate the recurrent falls with back and head injuries. The patient is a resident of nursing facility. She is known to have multiple medical issues including hypertension, diabetes, chronic psychiatric disorder, GERD, and recurrent urinary tract infection. Upon arrival to this facility, CT scan of the brain was obtained, this revealed extensive ischemic cerebrovascular disease. Chest x-ray, no evidence of acute cardiopulmonary disease. Lab work included CBC study with WBC of 14.7, hemoglobin 11.4, and hematocrit 35.8. Chemistry panel, creatinine 1.5 and CPK of 588. Normal troponin. Since admission till present, the patient appears to be drowsy. PAST MEDICAL HISTORY: Hyperlipidemia, hypertension, GERD, chronic psychiatric disorder, diabetes type 2, she had an cervical cancer. MEDICATIONS: Treatment prior to admission included atorvastatin, Tylenol as needed, [place] as needed, lorazepam 2 mg p.r.n., metformin 500 mg b.i.d., Zyprexa 5 mg at bedtime, Januvia and trazodone 100 mg at bedtime. ALLERGIES: None reported. FAMILY HISTORY: Unavailable. REVIEW OF SYMPTOMS: The patient indicated she is feeling well. She was admitted because of falls. She denies any other major problems, but her communication was limited. PHYSICAL EXAMINATION: GENERAL: A well-developed and well-nourished female, found to be in bed asleep, but arousable. VITAL SIGNS: Blood pressure 103/57 and heart rate of 86 with temperature 98.3 degrees. HEENT: Head, normocephalic. There is no evidence of trauma. Eyes, ears, and throat are clear. NECK: Supple. No meningeal signs. MUSCULOSKELETAL: Palpable and percussion tenderness in the lumbar region, which the patient indicate is acute following falls. EXTREMITIES: Upper and lower extremities without clubbing, cyanosis, or edema. Peripheral pulses 1+ symmetric. MENTAL STATUS: The patient speaks Syriac only and preview is obtained with the help of a Syriac speaking nursing staff. The patient was able to give correct age and name, but not place. She had limited history of illness. She was able to follow few simple commands, but remained drowsy and poorly cooperative. CRANIAL NERVE II: Pupils 2 mm responding to light and accommodation. Extraocular movement full range. Fundi poorly visualized. CRANIAL NERVE V: Normal corneal responses. CRANIAL NERVE VII: Slight droop right nasolabial fold. CRANIAL NERVE VIII: Normal hearing. CRANIAL NERVES IX THROUGH XII: Tongue is in midline. MOTOR EXAMINATION: Diffuse rigidity both upper extremities. Able to lift arms against the gravity. Deep tendon reflexes depressed bilaterally. Plantar responses flexor. SENSORY EXAMINATION: Withdrawing to pin stimulation all limbs. Gait not tested. IMPRESSION: 1. This is a 87-year-old female with extensive ischemic cerebrovascular disease presenting with abnormal unsteady gait with frequent falls. 2. Posttraumatic low back pain, rule out compression fracture. 3. Chronic psychiatric disorder. 4. Hypertension. 5. Diabetes type 2. 6. Polypharmacy. RECOMMENDATIONS: 1. Hold opiates and benzodiazepines. 2. Holding olanzapine contributing to the patient's fall. 3. Maintain on atorvastatin, start on aspirin 81 mg daily. 4. Get PT/OT for mobility protocol. 5. May use small dose of Depakote 125 mg b.i.d. for mood stabilization. 6. Check for any paroxysmal events. 7. Obtain x-ray of lumbosacral spine to rule out fracture if necessary proceed with MRI. Thank you for allowing me to see this interesting patient in neurological consultation. Gabe Reid M.D. DR: AJ JOB#: [id number] CC:
--- NOTE | 2017-08-06 17:45 | History and Physical Report ---
DATE OF ADMISSION: 08/05/2017 TIME SEEN: 08/06/2017, 1 p.m. CONSULTANTS: 1. Spencer Leonardo M.D. 2. Gabe Reid M.D. 3. Valentin Jefferson M.D. CHIEF COMPLAINT: Fall, head trauma and confusion. BRIEF HISTORY: The patient is an 87-year-old female from [facility], who presented with above-mentioned diagnoses. Currently sitting on bed, confused, not talking much. PAST MEDICAL HISTORY: COPD, diabetes, encephalopathy, insomnia, malnutrition, renal insufficiency, and hypertension. PAST SURGICAL HISTORY: Unknown. MEDICATIONS: Ativan, [place], Phenergan with codeine, Januvia, Depakote, Desyrel, heparin, NovoLog and Tylenol. ALLERGIES: Denies. SOCIAL HISTORY: No smoking. No alcohol. No intravenous drug abuse. FAMILY HISTORY: Noncontributory. REVIEW OF SYSTEMS: Unavailable. PHYSICAL EXAMINATION: GENERAL: Calm in bed, oriented x1, no acute distress. VITAL SIGNS: Temperature is 99 degrees, pulse 76, respirations 20, and blood pressure 104/52. CARDIOVASCULAR: No murmur. PULMONARY: Distant and clear. ABDOMEN: Bowel sounds positive. Soft, nontender and nontender. EXTREMITIES: No cyanosis or edema. NEUROLOGIC: The patient moves all extremities, slightly weak. LABORATORY AND DIAGNOSTIC DATA: Labs at this time show initial white count was 14, now 10; hemoglobin and hematocrit is 10/31 and platelets 190. Potassium 3.4, creatinine 1.4, and glucose 112. Albumin 3.9. ASSESSMENT: 1. Fall. 2. Head trauma. 3. Altered mental status. 4. Anemia. 5. Chronic obstructive pulmonary disease. 6. Diabetes. 7. Encephalopathy. 8. Insomnia. 9. Malnutrition. 10. Renal insufficiency. 11. Hypertension. PLAN: 1. O2 and pulmonary treatment. 2. OT/PT. 3. Dietary evaluation. 4. CBC and BMP in morning. 5. Resume home medications. 6. Dr. Leonardo, Dr. Reid, and Dr. Jefferson and we will continue to follow this patient medically. Ap Dalton D.O. DR: LEON JOB#: [id number] CC:
--- NOTE | 2017-08-06 17:46 | Cardiology Report ---
APPROVED REPORT EKG Measurement Heart [id number] [id number] Normal sinus rhythm Normal ECG
--- NOTE | 2017-08-06 20:18 | Consultation ---
DATE OF CONSULTATION: 08/06/2017 HISTORY OF PRESENT ILLNESS: This is an 87-year-old female patient. She came into the hospital at [facility] secondary to she had a fall before she came in at [facility]. So, she came into the hospital. She had also some confusion and some disorganized thought process when she originally came in. There was a psychiatric consultation because the patient has overlying diagnosis of paranoid schizophrenia, rule out dementia with psychosis. So, I saw and assessed her at bedside. She was calm, but she was confused and disorganized even when I spoke to the nurse, who was able to translate. The patient still has some confusion, intermittent bouts of agitation, and cognition seems to have declined below baseline secondary to the progression of her medical illness so that is why there was a psychiatric consultation requested for this patient. She has had a recent fall and she is a poor historian. ALLERGIES: No known drug allergies. SUBSTANCE ABUSE HISTORY: No history of any drug or alcohol use. SOCIAL HISTORY: Lives in a group home [facility]. Financially supported by [facility] and Medicare. MENTAL STATUS EXAMINATION: This is an 87-year-old female. Appearance is disheveled, irritable, and agitated. Affect guarded and restricted. Intellect poor. Mood depressed and anxious. Motor activity, psychomotor retardation. Mood is depressed. Affect guarded and restricted. Thought process, disorganized. Denies any current suicidal or homicidal thoughts. Insight and judgment is poor. DIAGNOSIS: Paranoid schizophrenia with acute exacerbation, rule out dementia with psychosis. PLAN: My plan for this patient is I am going to start her on a psychotropic med regimen consisting of Zyprexa 5 mg at bedtime. Because of this, she was taken out of group home as well, but to prevent any further decline in her cognition, I am also going to start her on Aricept at a dose of 5 mg at bedtime to prevent any further decline in cognition as her cognition has declined below baseline and that is why, I told her the reason why her attending physician has requested daily psychiatric consultation with this patient throughout hospital course and manage her behavior and to prevent any further decline in her cognition. Supportive therapy provided. Chart reviewed and discussed with staff provided with the help of the Armenian extrusion operator. She was seen and assessed at bedside. Valentin Jefferson M.D. DR: GINO JOB#: [id number] CC:
[2017-08-06] MEDS: Donepezil 5mg Tab ORAL SCH (21:20)
[2017-08-06] MEDS: TraZODone 100mg tab ORAL SCH (21:21)
[2017-08-07 00:16] VITALS: BP 131/68
[2017-08-07 04:11] VITALS: BP 112/57
[2017-08-07] MEDS: sitaGLIPtin 25mg tab ORAL SCH (06:04)
[2017-08-07] MEDS: NovoLOG Insulin Flexpen SUBQ SCH ×4 (06:04→20:49)
[2017-08-07] MEDS: Norco 5mg/325mg tab ORAL PRN ×2 (06:08→20:48)
[2017-08-07 08:00] VITALS: BP 111/61
[2017-08-07 08:30] LABS: BASOPHILS % (AUTO) 0.3 % (0.0-2.0); EOSINOPHILS % (AUTO) 0.1 % (0.0-3.0); HEMOGLOBIN 11.3 G/DL (12.0-16.0); LYMPHOCYTES % (AUTO) 17.8 % (20.0-45.0); MEAN CORPUSCULAR VOLUME 94 FL (80-99); MONOCYTES % (AUTO) 5.1 % (1.0-10.0); NEUTROPHILS % (AUTO) 76.7 % (45.0-75.0); PLATELET COUNT 219 K/UL (150-450); RED BLOOD COUNT 3.63 M/UL (4.20-5.40); RED CELL DISTRIBUTION WIDTH 11.1 % (11.6-14.8); WHITE BLOOD COUNT 9.8 K/UL (4.8-10.8)
[2017-08-07] MEDS: Depakote ER 250mg tab ORAL SCH ×2 (08:47→18:26)
[2017-08-07] MEDS: Heparin 5000 units/ml inj SUBQ SCH ×2 (08:48→20:50)
[2017-08-07 10:13] LABS: ANION GAP 12 mmol/L (5-15); BLOOD UREA NITROGEN 11 mg/dL (7-18); CARBON DIOXIDE 23 MMOL/L (21-32); CHLORIDE 102 MMOL/L (98-107); CREATININE 1.2 MG/DL (0.55-1.30); POTASSIUM 3.4 MMOL/L (3.5-5.1); SODIUM 137 MMOL/L (136-145)
[2017-08-07 11:53] VITALS: BP 105/46
--- NOTE | 2017-08-07 14:18 | General Progress Note ---
Assessment/Plan Problem List: (1) Renal insufficiency ICD Codes: N28.9 - Disorder of kidney and ureter, unspecified SNOMED: 195320854, 056802308 (2) Unsteady gait ICD Codes: R26.81 - Unsteadiness on feet SNOMED: 51497985, 563851934 (3) Frequent falls ICD Codes: R29.6 - Repeated falls SNOMED: 073923814 (4) Diabetes mellitus ICD Codes: E11.9 - Type 2 diabetes mellitus without complications SNOMED: 80360623 (5) Malnutrition ICD Codes: E46 - Unspecified protein-calorie malnutrition SNOMED: 0401643 (6) Hypertension ICD Codes: I10 - Essential (primary) hypertension SNOMED: 76623982 Status: stable, progressing, tolerating diet Assessment/Plan ot pt diet cardio neuro f/u cbc bmp am Subjective Constitutional: Reports: weakness Allergies: Coded Allergies: No Known Allergies (Unverified , 12/14/12) All Systems: reviewed and negative except above Subjective calm in bed Objective Last 24 Hour Vital Signs Date Time Temp Pulse Resp B/P (MAP) Pulse Ox O2 Delivery O2 Flow Rate FiO2 08/07/17 11:53 98.2 59 20 105/46 100 08/07/17 08:00 97.6 75 20 111/61 98 08/07/17 07:10 97.3 08/07/17 04:11 97.3 80 19 112/57 95 08/07/17 00:16 97.3 67 19 131/68 96 08/06/17 20:33 97.6 54 19 104/63 96 08/06/17 19:10 72 18 Room Air 21 08/06/17 16:07 98.8 72 20 123/70 97 Intake and Output 08/06/17 08/07/17 19:00 07:00 Intake Total 855 ml Balance 855 ml Intake Oral 480 ml IV Total 375 ml # Voids 4 1 # Bowel Movements 1 Laboratory Tests 08/07/17 06:58: White Blood Count 9.8, Red Blood Count 3.63L, Hemoglobin 11.3L, Hematocrit 34.0L , Mean Corpuscular Volume 94, Mean Corpuscular Hemoglobin 31.2H, Mean Corpuscular Hemoglobin Concent 33.3, Red Cell Distribution Width 11.1L, Platelet Count 219, Mean Platelet Volume 6.2L, Neutrophils (%) (Auto) 76.7H, Lymphocytes (%) (Auto) 17.8L, Monocytes (%) (Auto) 5.1, Eosinophils (%) (Auto) 0.1, Basophils (%) (Auto) 0.3, Sodium Level 137, Potassium Level 3.4L, Chloride Level 102, Carbon Dioxide Level 23, Anion Gap 12, Blood Urea Nitrogen 11, Creatinine 1.2, Estimat Glomerular Filtration Rate , Glucose Level 102, Calcium Level 9.0 Height (Feet): 5 Height (Inches): 0.00 Weight (Pounds): 115 General Appearance: lethargic EENT: normal ENT inspection Neck: normal alignment Cardiovascular: normal peripheral pulses, normal rate, regular rhythm Respiratory/Chest: chest wall non-tender, lungs clear, normal breath sounds Abdomen: normal bowel sounds, non tender, soft Extremities: normal inspection Edema: no edema noted Arm (L), no edema noted Arm (R), no edema noted Leg (L), no edema noted Leg (R), no edema noted Pedal (L), no edema noted Pedal (R), no edema noted Generalized Neurologic: motor weakness Skin: normal pigmentation, warm/dry MARY TORRES Aug 07, 2017 14:18
[2017-08-07 16:04] VITALS: BP 122/71
--- NOTE | 2017-08-07 18:17 | Progress Note ---
DATE: 08/07/2017 HISTORY: The patient is an 87-year-old patient with multiple problems. This patient does have some confusion and disorganized thought process. Slight altered mental status secondary to the progression of her medical illness. Because of decline in her cognition, her attending physician has requested daily psychiatric consultation for this patient. MENTAL STATUS EXAMINATION: The patient is an 87-year-old female with psychomotor retardation. Mood depressed. Affect guarded and restricted. Thought process is disorganized. Denies any current suicidal or homicidal thoughts. Insight and judgment is poor. PLAN: Plan for this patient is to treat her with medication to prevent any further decline in her cognition. Aricept 5 mg at bedtime and she will continue to be followed by Psychiatry throughout her hospital course. Seen and assessed at bedside. Supportive therapy provided. Chart reviewed. Discussed with staff. She will continue to be followed by Psychiatry daily per request of her attending physician to prevent any further decline in her cognition. Chart reviewed. Discussed with the staff. Supportive therapy provided. Valentin Jefferson M.D. DR: SUJEY JOB#: [id number] CC:
--- NOTE | 2017-08-07 19:04 | Pulmonology Progress Note ---
Assessment/Plan Problems: (1) UTI (urinary tract infection) (2) Diabetes mellitus (3) Malnutrition (4) Hypertension Assessment/Plan check cultures pt/ot psych evaluation check electrolytes Subjective ROS Limited/Unobtainable: No Constitutional: Reports: no symptoms HEENT: Repors: no symptoms Respiratory: Reports: no symptoms Allergies: Coded Allergies: No Known Allergies (Unverified , 12/14/12) Objective Last 24 Hour Vital Signs Date Time Temp Pulse Resp B/P (MAP) Pulse Ox O2 Delivery O2 Flow Rate FiO2 08/07/17 16:04 97.5 61 20 122/71 99 08/07/17 11:53 98.2 59 20 105/46 100 08/07/17 08:00 97.6 75 20 111/61 98 08/07/17 07:10 97.3 08/07/17 04:11 97.3 80 19 112/57 95 08/07/17 00:16 97.3 67 19 131/68 96 08/06/17 20:33 97.6 54 19 104/63 96 08/06/17 19:10 72 18 Room Air 21 Intake and Output 08/06/17 08/07/17 19:00 07:00 Intake Total 855 ml Balance 855 ml Intake Oral 480 ml IV Total 375 ml # Voids 4 1 # Bowel Movements 1 Objective General Appearance: WD/WN HEENT: normocephalic Respiratory/Chest: chest wall non-tender, lungs clear Breasts: no masses Cardiovascular: normal peripheral pulses Abdomen: normal bowel sounds Extremities: no cyanosis Skin: no lesions Laboratory Tests 08/07/17 06:58: White Blood Count 9.8, Red Blood Count 3.63L, Hemoglobin 11.3L, Hematocrit 34.0L , Mean Corpuscular Volume 94, Mean Corpuscular Hemoglobin 31.2H, Mean Corpuscular Hemoglobin Concent 33.3, Red Cell Distribution Width 11.1L, Platelet Count 219, Mean Platelet Volume 6.2L, Neutrophils (%) (Auto) 76.7H, Lymphocytes (%) (Auto) 17.8L, Monocytes (%) (Auto) 5.1, Eosinophils (%) (Auto) 0.1, Basophils (%) (Auto) 0.3, Sodium Level 137, Potassium Level 3.4L, Chloride Level 102, Carbon Dioxide Level 23, Anion Gap 12, Blood Urea Nitrogen 11, Creatinine 1.2, Estimat Glomerular Filtration Rate , Glucose Level 102, Calcium Level 9.0 Current Medications Medications (Trade) Dose Ordered Sig/Milvia Route PRN Reason Start Time Stop Time Status Last Admin Dose Admin Acetaminophen (Tylenol) 650 mg Q4H PRN ORAL fever 08/05/17 19:00 09/04/17 18:59 08/07/17 12:47 Acetaminophen/ Hydrocodone Bitart ([place] 5/325) 1 tab Q4H PRN ORAL Moderate Pain (Pain Scale 4-6) 08/06/17 11:45 08/13/17 11:44 08/07/17 06:08 Al Hydroxide/Mg Hydroxide (Mylanta II) 30 ml Q6H PRN ORAL dyspepsia 08/05/17 19:00 09/04/17 18:59 Albuterol/ Ipratropium (Albuterol/ Ipratropium) 3 ml Q6HRT PRN HHN dyspnea 08/05/17 19:00 08/10/17 18:59 Clonidine HCl (Catapres Tab) 0.1 mg Q4H PRN ORAL For High Blood Pressure 08/05/17 19:00 09/04/17 18:59 Dextrose (Dextrose 50%) STAT PRN IV Hypoglycemia 08/05/17 19:00 09/04/17 18:59 Divalproex Sodium (Depakote ER) 250 mg BID ORAL 08/06/17 09:00 09/05/17 08:59 08/07/17 18:26 Donepezil HCl (Aricept) 5 mg QHS ORAL 08/06/17 21:00 09/05/17 20:59 08/06/17 21:20 Heparin Sodium (Porcine) (Heparin 5000 units/ml) 5,000 units EVERY 12 HOURS SUBQ 08/05/17 21:00 09/04/17 20:59 08/07/17 08:48 Insulin Aspart (NovoLOG) BEFORE MEALS AND HS SUBQ 08/05/17 21:00 09/04/17 20:59 08/07/17 17:57 Lorazepam (Ativan) 2 mg QHS PRN ORAL For Anxiety 08/06/17 11:45 08/13/17 11:44 Olanzapine (ZyPREXA) 5 mg QHS ORAL 08/06/17 21:00 09/05/17 20:59 08/06/17 21:20 Ondansetron HCl (Zofran) 4 mg Q6H PRN IVP Nausea & Vomiting 08/05/17 19:00 09/04/17 18:59 Polyethylene Glycol (Miralax) 17 gm HSPRN PRN ORAL Constipation 08/05/17 19:00 09/04/17 18:59 08/07/17 03:46 Promethazine HCl/ Codeine (Phenergan with Codeine) 5 ml Q6HR PRN ORAL For Cough 08/06/17 11:45 09/05/17 11:44 Sitagliptin Phosphate (Januvia) 25 mg ACBREAKFAST ORAL 08/06/17 11:15 09/05/17 11:14 08/07/17 06:04 Trazodone HCl (Desyrel) 100 mg BEDTIME ORAL 08/05/17 21:00 09/04/17 20:59 08/06/17 21:21 Zolpidem Tartrate (Ambien) 5 mg HSPRN PRN ORAL Insomnia 08/05/17 19:00 08/12/17 18:59 08/07/17 00:01 EFREM BETANCUR Aug 07, 2017 19:04
[2017-08-07 20:30] VITALS: BP 109/53
[2017-08-07] MEDS: TraZODone 100mg tab ORAL SCH (20:47)
[2017-08-07] MEDS: Donepezil 5mg Tab ORAL SCH (20:47)
[2017-08-08 00:16] VITALS: BP 101/62
[2017-08-08 04:45] VITALS: BP 124/65
[2017-08-08] MEDS: sitaGLIPtin 25mg tab ORAL SCH (06:22)
[2017-08-08] MEDS: NovoLOG Insulin Flexpen SUBQ SCH ×2 (06:32→11:49)
[2017-08-08 07:13] LABS: BASOPHILS % (AUTO) 0.7 % (0.0-2.0); EOSINOPHILS % (AUTO) 0.5 % (0.0-3.0); HEMATOCRIT 31.8 % (37.0-47.0); HEMOGLOBIN 11.1 G/DL (12.0-16.0); LYMPHOCYTES % (AUTO) 23.2 % (20.0-45.0); MEAN CORPUSCULAR VOLUME 93 FL (80-99); MONOCYTES % (AUTO) 6.3 % (1.0-10.0); NEUTROPHILS % (AUTO) 69.3 % (45.0-75.0); PLATELET COUNT 220 K/UL (150-450); RED BLOOD COUNT 3.43 M/UL (4.20-5.40); WHITE BLOOD COUNT 7.4 K/UL (4.8-10.8)
[2017-08-08 07:14] LABS: ANION GAP 9 mmol/L (5-15); BLOOD UREA NITROGEN 13 mg/dL (7-18); CALCIUM 8.7 MG/DL (8.5-10.1); CARBON DIOXIDE 26 MMOL/L (21-32); CHLORIDE 105 MMOL/L (98-107); CREATININE 1.2 MG/DL (0.55-1.30); SODIUM 140 MMOL/L (136-145)
[2017-08-08 08:03] VITALS: BP 116/66
[2017-08-08] MEDS: Depakote ER 250mg tab ORAL SCH (09:11)
[2017-08-08] MEDS: Heparin 5000 units/ml inj SUBQ SCH (09:11)
[2017-08-08] MEDS ORDERED: LORazepam 0.5mg tab ORAL PRN (10:45)
[2017-08-08 12:00] VITALS: BP 136/59
--- NOTE | 2017-08-08 14:36 | General Progress Note ---
Assessment/Plan Problem List: (1) Renal insufficiency ICD Codes: N28.9 - Disorder of kidney and ureter, unspecified SNOMED: 328688314, 665464160 (2) Unsteady gait ICD Codes: R26.81 - Unsteadiness on feet SNOMED: 18793854, 841700272 (3) Frequent falls ICD Codes: R29.6 - Repeated falls SNOMED: 623982128 (4) Diabetes mellitus ICD Codes: E11.9 - Type 2 diabetes mellitus without complications SNOMED: 14016004 (5) Malnutrition ICD Codes: E46 - Unspecified protein-calorie malnutrition SNOMED: 4822332 (6) Hypertension ICD Codes: I10 - Essential (primary) hypertension SNOMED: 60834272 Status: doing well, stable, progressing Assessment/Plan ot pt diet cardio neuro dc if clear Subjective Constitutional: Reports: weakness Allergies: Coded Allergies: No Known Allergies (Unverified , 12/14/12) All Systems: reviewed and negative except above Subjective calm in bed Objective Last 24 Hour Vital Signs Date Time Temp Pulse Resp B/P (MAP) Pulse Ox O2 Delivery O2 Flow Rate FiO2 08/08/17 12:00 97.7 68 20 136/59 99 08/08/17 12:00 Room Air 08/08/17 08:20 73 18 Room Air 21 08/08/17 08:05 Room Air 08/08/17 08:03 97.0 81 19 116/66 98 08/08/17 04:45 97.9 60 18 124/65 97 08/08/17 00:16 97.4 64 18 101/62 95 08/07/17 20:30 97.5 61 20 109/53 93 08/07/17 16:04 97.5 61 20 122/71 99 Intake and Output 08/07/17 08/08/17 19:00 07:00 Intake Total 480 ml 480 ml Balance 480 ml 480 ml Intake Oral 480 ml 480 ml # Voids 5 2 Laboratory Tests 08/08/17 05:40: White Blood Count 7.4, Red Blood Count 3.43L, Hemoglobin 11.1L, Hematocrit 31.8L , Mean Corpuscular Volume 93, Mean Corpuscular Hemoglobin 32.2H, Mean Corpuscular Hemoglobin Concent 34.8, Red Cell Distribution Width 11.0L, Platelet Count 220, Mean Platelet Volume 6.1L, Neutrophils (%) (Auto) 69.3, Lymphocytes (%) (Auto) 23.2, Monocytes (%) (Auto) 6.3, Eosinophils (%) (Auto) 0.5, Basophils (%) (Auto) 0.7, Sodium Level 140, Potassium Level 4.0, Chloride Level 105, Carbon Dioxide Level 26, Anion Gap 9, Blood Urea Nitrogen 13, Creatinine 1.2, Estimat Glomerular Filtration Rate , Glucose Level 121H, Calcium Level 8.7 Height (Feet): 5 Height (Inches): 0.00 Weight (Pounds): 115 General Appearance: lethargic EENT: normal ENT inspection Neck: normal alignment Cardiovascular: normal peripheral pulses, normal rate, regular rhythm Respiratory/Chest: chest wall non-tender, lungs clear, normal breath sounds Abdomen: normal bowel sounds, non tender, soft Extremities: normal inspection Edema: no edema noted Arm (L), no edema noted Arm (R), no edema noted Leg (L), no edema noted Leg (R), no edema noted Pedal (L), no edema noted Pedal (R), no edema noted Generalized Neurologic: motor weakness Skin: normal pigmentation, warm/dry MARY TORRES Aug 08, 2017 14:36
--- NOTE | 2017-08-08 15:45 | Progress Note ---
DATE: 08/08/2017 SUBJECTIVE: This is an 87-year-old patient who has multiple falls. She is confused and disorganized. Mood labile, but she does have some agitation, anxiety, irritability throughout her hospital course. Increasingly agitated throughout her hospital course as well, high levels of anxiety and agitation. MENTAL STATUS EXAMINATION: This is an 87-year-old female with psychomotor agitation. Mood is irritable and agitated. Affect guarded and restricted. Thought process is disorganized and illogical. Denies any current suicidal or homicidal thoughts. Insight and judgment is poor. DIAGNOSIS: Paranoid schizophrenia with acute exacerbation, rule out dementia with psychosis. PLAN: We will continue Aricept but I am also going to add Ativan to reduce anxiety and agitation throughout the hospital course. Chart reviewed and discussed with staff. Seen and assessed at bedside. Valentin Jefferson M.D. DR: MARY JOB#: [id number] CC:
[2017-08-08] MEDS ORDERED: DEPAKOTE ER250 MG ORAL (16:10)
[2017-08-08] MEDS ORDERED: Tubing IV Secondary IV ONE (16:34)
--- NOTE | 2017-08-08 16:42 | Pulmonology Progress Note ---
Assessment/Plan Problems: (1) UTI (urinary tract infection) (2) Diabetes mellitus (3) Malnutrition (4) Hypertension Assessment/Plan doing bettercheck cultures pt/ot psych evaluation check electrolytes all meds and notes reviewed dc planning Subjective ROS Limited/Unobtainable: No Allergies: Coded Allergies: No Known Allergies (Unverified , 12/14/12) Objective Last 24 Hour Vital Signs Date Time Temp Pulse Resp B/P (MAP) Pulse Ox O2 Delivery O2 Flow Rate FiO2 08/08/17 12:00 97.7 68 20 136/59 99 08/08/17 12:00 Room Air 08/08/17 08:20 73 18 Room Air 21 08/08/17 08:05 Room Air 08/08/17 08:03 97.0 81 19 116/66 98 08/08/17 04:45 97.9 60 18 124/65 97 08/08/17 00:16 97.4 64 18 101/62 95 08/07/17 20:30 97.5 61 20 109/53 93 Intake and Output 08/07/17 08/08/17 19:00 07:00 Intake Total 480 ml 480 ml Balance 480 ml 480 ml Intake Oral 480 ml 480 ml # Voids 5 2 Objective General Appearance: WD/WN HEENT: normocephalic Respiratory/Chest: chest wall non-tender, lungs clear Breasts: no masses Cardiovascular: normal peripheral pulses Abdomen: normal bowel sounds Extremities: no cyanosis Skin: no lesions Microbiology Date/Time Source Procedure Growth Status 08/05/17 17:32 Nasal Nares MRSA Culture - Final NO METHICILLIN RESISTANT STAPH AUREUS... Complete 08/05/17 17:32 Rectum VRE Culture - Final NO VANCOMYCIN RESISTANT ENTEROCOCCUS ... Complete Laboratory Tests 08/08/17 05:40: White Blood Count 7.4, Red Blood Count 3.43L, Hemoglobin 11.1L, Hematocrit 31.8L , Mean Corpuscular Volume 93, Mean Corpuscular Hemoglobin 32.2H, Mean Corpuscular Hemoglobin Concent 34.8, Red Cell Distribution Width 11.0L, Platelet Count 220, Mean Platelet Volume 6.1L, Neutrophils (%) (Auto) 69.3, Lymphocytes (%) (Auto) 23.2, Monocytes (%) (Auto) 6.3, Eosinophils (%) (Auto) 0.5, Basophils (%) (Auto) 0.7, Sodium Level 140, Potassium Level 4.0, Chloride Level 105, Carbon Dioxide Level 26, Anion Gap 9, Blood Urea Nitrogen 13, Creatinine 1.2, Estimat Glomerular Filtration Rate , Glucose Level 121H, Calcium Level 8.7 Current Medications Medications (Trade) Dose Ordered Sig/Milvia Route PRN Reason Start Time Stop Time Status Last Admin Dose Admin Acetaminophen (Tylenol) 650 mg Q4H PRN ORAL fever 08/05/17 19:00 09/04/17 18:59 08/07/17 12:47 Acetaminophen/ Hydrocodone Bitart ([place] 5/325) 1 tab Q4H PRN ORAL Moderate Pain (Pain Scale 4-6) 08/06/17 11:45 08/13/17 11:44 08/07/17 20:48 Al Hydroxide/Mg Hydroxide (Mylanta II) 30 ml Q6H PRN ORAL dyspepsia 08/05/17 19:00 09/04/17 18:59 Albuterol/ Ipratropium (Albuterol/ Ipratropium) 3 ml Q6HRT PRN HHN dyspnea 08/05/17 19:00 08/10/17 18:59 Clonidine HCl (Catapres Tab) 0.1 mg Q4H PRN ORAL For High Blood Pressure 08/05/17 19:00 09/04/17 18:59 Dextrose (Dextrose 50%) STAT PRN IV Hypoglycemia 08/05/17 19:00 09/04/17 18:59 Divalproex Sodium (Depakote ER) 250 mg BID ORAL 08/06/17 09:00 09/05/17 08:59 08/08/17 09:11 Donepezil HCl (Aricept) 5 mg QHS ORAL 08/06/17 21:00 09/05/17 20:59 08/07/17 20:47 Heparin Sodium (Porcine) (Heparin 5000 units/ml) 5,000 units EVERY 12 HOURS SUBQ 08/05/17 21:00 09/04/17 20:59 08/08/17 09:11 Insulin Aspart (NovoLOG) BEFORE MEALS AND HS SUBQ 08/05/17 21:00 09/04/17 20:59 08/08/17 11:49 Lorazepam (Ativan) 0.5 mg Q6H PRN ORAL For Anxiety 08/08/17 10:45 1/25/18 10:44 Olanzapine (ZyPREXA) 5 mg QHS ORAL 08/06/17 21:00 09/05/17 20:59 08/07/17 20:46 Ondansetron HCl (Zofran) 4 mg Q6H PRN IVP Nausea & Vomiting 08/05/17 19:00 09/04/17 18:59 Polyethylene Glycol (Miralax) 17 gm HSPRN PRN ORAL Constipation 08/05/17 19:00 09/04/17 18:59 08/07/17 03:46 Promethazine HCl/ Codeine (Phenergan with Codeine) 5 ml Q6HR PRN ORAL For Cough 08/06/17 11:45 09/05/17 11:44 Sitagliptin Phosphate (Januvia) 25 mg ACBREAKFAST ORAL 08/06/17 11:15 09/05/17 11:14 08/08/17 06:22 Trazodone HCl (Desyrel) 100 mg BEDTIME ORAL 08/05/17 21:00 09/04/17 20:59 08/07/17 20:47 Zolpidem Tartrate (Ambien) 5 mg HSPRN PRN ORAL Insomnia 08/05/17 19:00 08/12/17 18:59 08/07/17 00:01 EFREM BETANCUR Aug 08, 2017 16:42
--- NOTE | 2017-08-09 10:39 | Discharge Summary ---
Discharge Summary Hospital Course Date of Admission Aug 05, 2017 at 17:59 Date of Discharge Aug 08, 2017 at 16:35 Admitting Diagnosis MULTIPLE FALLS HPI Sagar Feldman is a 87 year old female who was admitted on Aug 05, 2017 at 17:59 for Multiple Falls Hospital Course [id number] Discharge Discharge Disposition Patient was discharged to snf Discharge Diagnoses: Kamryn Winston NP Aug 09, 2017 10:39
--- NOTE | 2017-08-10 00:15 | Discharge Summary 2 SIG ---
DATE OF ADMISSION: 08/05/2017 DATE OF DISCHARGE: 08/08/2017 CONSULTANTS: 1. Ap Dalton D.O. 2. Valentin Jefferson M.D. 3. Gabe Reid M.D. BRIEF HOSPITAL COURSE: The patient is an 87-year-old female, who presented to ED for evaluation of multiple falls for a day. Fall were unwitnessed. The patient was found on the ground and is nonverbal at baseline. She has history of hyperlipidemia, GERD, hypertension, chronic psychiatric disorder, diabetes type 2, and had cervical CA. On evaluation at ED, blood work showed elevated creatinine level. WBC was slightly elevated to 14. BUN 16 and creatinine 1.5. Chest x-rays showed no acute process. EKG was in normal sinus rhythm. Head CT showed no evidence of acute intracranial hemorrhage, mass effect, or cortical edema with atrophy and nonspecific periventricular hypoattenuation suggestive of chronic ischemic vascular disease. Pelvic CT showed no acute fracture. She was given IV hydration. She underwent neurologic evaluation. The patient had an abnormal and unsteady gait. She was given PT and OT for mobility and was started on low-dose Depakote 125 mg b.i.d. for mood stabilization. She was diagnosed to have paranoid schizophrenia with acute exacerbation and was given Zyprexa 5 mg at bedtime and Aricept with p.r.n. Ativan. She was eventually discharged to SNF. FINAL DIAGNOSES: 1. Acute kidney injury. 2. Diabetes mellitus. 3. Hypertension. 4. Paranoid schizophrenia. 5. Polypharmacy. 6. 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 7. Posttraumatic low back pain. DISPOSITION: The patient was discharged to [facility]. DISCHARGE MEDICATIONS: Refer to medication list. Spencer Leonardo M.D. I have been assigned to dictate discharge summary on this account and I was not involved in the patient's management. Kamryn Winston N.P. DR: TERRA JOB#: [id number] CC: [email or web address]
== END 2017-08-08 16:35 | DRG 47 ==
LOC: EDBD 16:34 → EMR 17:43 → 4W 17:59 → EDBEDREQ 18:51
DX: I67.82 Cerebral ischemia (principal); N17.9 Acute kidney failure, unspecified; E46 Unspecified protein-calorie malnutrition; J44.9 Chronic obstructive pulmonary disease, unspecified; R26.81 Unsteadiness on feet; F20.0 Paranoid schizophrenia; E11.9 Type 2 diabetes mellitus without complications; I10 Essential (primary) hypertension; Z91.81 History of falling; R29.6 Repeated falls; M54.5 Low back pain; E78.5 Hyperlipidemia, unspecified; K21.9 Gastro-esophageal reflux disease without esophagitis; Z85.41 Personal history of malignant neoplasm of cervix uteri; Z68.22 Body mass index [BMI] 22.0-22.9, adult; G47.00 Insomnia, unspecified; Z87.440 Personal history of urinary (tract) infections
CPT/HCPCS: 36415; 70450; 71045; 72192; 80048; 80053; 80061; 82550; 82553; 82962; 83036; 84443; 84484; 85025; 87081; 90732; 93005; 94664; 97803; 99285; J1815; J7620